=== PATIENT | female | born 1990 | race Caucasian/White ===

== ENCOUNTER → 2019-08-23 14:02 | Outpatient (BNVA) | payer BC, SELFPAY | PROVIDERS: Family Provider Family Medicine; PCP Family Medicine; Visit Provider Nurse Practitioner Women's Health | DX: N93.9 Abnormal uterine and vaginal bleeding, unspecified (principal) | CPT/HCPCS: 84702; 85025 ==

== ENCOUNTER → 2019-09-03 13:58 | Outpatient (BNVA) | payer BC, SELFPAY | PROVIDERS: Family Provider Family Medicine; PCP Family Medicine; Visit Provider Nurse Practitioner Women's Health | DX: N93.9 Abnormal uterine and vaginal bleeding, unspecified (principal) | CPT/HCPCS: 76830 ==

== ENCOUNTER 2020-09-15 00:58 | Emergency (ER) | payer MEDICAID, SELFPAY ==
[2020-09-15 01:12] VITALS: BP 139/80; PULSE 123; RESP 22; TEMP 38.8; O2SAT 97; BMI 41.3
--- NOTE | 2020-09-15 01:19 | XRR_ITS ---
PROCEDURE INFORMATION: Exam: XR Chest Exam date and time: 09/15/2020 1:19 AM Age: 30 years old Clinical indication: Cough and fever; Additional info: Cough fever TECHNIQUE: Imaging protocol: XR of the chest. Views: 1 view. COMPARISON: CT abdomen pelvis w con* [id number] 09/12/2014 1:26 AM FINDINGS: Lungs: Unremarkable. No consolidation. Pleural spaces: Unremarkable. No pleural effusion. No pneumothorax. Heart/Mediastinum: Unremarkable. No cardiomegaly. Bones/joints: Unremarkable. XR/XR chest 1V portable [id number] IMPRESSION: No acute disease.
--- NOTE | 2020-09-15 01:24 | ED_ITS ---
HPI - Seizure General: Chief Complaint: Seizure Stated Complaint: fever, cough Time Seen by Provider: 09/15/20 01:18 History of Present Illness: HPI Narrative: Patient comes in for concerns of seizure and high fever this evening. Patient started on the fever this afternoon. Household has been full of people sick with upper respiratory infection. 2 people had been tested and tested negative for COVID-19. Patient appears unwell. Patient appears no acute distress. Patient is alert. Respirations are even lungs are clear. Vital signs noted an elevated temperature of 102 with a pulse rate of 123. Patient has a history of depression. Associated symptoms: Reports fever(s) Review of Systems General: Reports: 10 or more systems reviewed and unremarkable except in HPI and below Const: Reports: fever(s) Neuro: Reports: seizure-like activity PFS ED PFSH: Medical History (Updated 09/15/20 @ 03:14 by CHITO Mccormick) Abnormal uterine bleeding (AUB) Asthma Depression Surgical History No pertinent past surgical history Family History Father Hypertension Stroke Denies family history of Colon cancer Ovarian cancer Diabetes Heart disease Hyperlipidemia Breast cancer Family history of thyroid problem Uterine cancer Social History Additional social history: - Tobacco use: Denies Alcohol use: Denies Drug use: Denies Physical Exam Const: COMMON NORMALS: no acute distress and patient oriented x3 GENERAL APPEARANCE: cooperative HENMT: COMMON NORMALS: normocephalic, TM's normal bilaterally and Normal external nose present HEAD & SCALP: normal to inspection and normocephalic NOSE: Normal external nose present TYMPANIC MEMBRANE: TM's normal bilaterally MOUTH: Normal oral and palatal mucosa present THROAT: posterior oropharynx normal Eye: GENERAL EYE: appearance normal, both eyes and all related structures Neck/C-Spine: COMMON NORMALS: full ROM Lymph: LYMPHATIC: no lymphadenopathy noted Chest: COMMONS NORMALS: normal inspection of the chest Resp: COMMON NORMALS: normal respiratory effort EFFORT & INSPECTION: Yes able to speak in complete sentences Cardio: COMMON NORMALS: regular rate and regular rhythm RATE: regular rate RHYTHM: regular rhythm GI: COMMON NORMALS: non-tender Back/Pelvis: COMMON NORMALS: thoracic and lumbar spine normal to inspection Extremity: COMMON NORMALS: normal to inspection Neuro: COMMON NORMALS: patient oriented x3 and moves all extremities Psych: COMMON NORMALS: mental status grossly normal and cooperative Skin: COMMON NORMALS: no rashes or lesions noted GENERAL SKIN EXAM: no rashes or lesions noted Course Vital Signs: Vital signs: Vital Signs Temperature 102 F H 09/15/20 01:12 Pulse Rate 123 H 09/15/20 01:12 Respiratory Rate 22 H 09/15/20 01:12 Blood Pressure 139/80 09/15/20 01:12 Pulse Oximetry 97 09/15/20 01:12 MDM - Seizure MDM Narrative: Medical decision making narrative: Patient comes in today with concerns of high fever and upper respiratory symptoms. Other members in the household are also ill with similar symptoms. Patient appears unwell, but not toxic. Mother reports that patient had a temperature of 105 and patient was shivering thinking that it looked like a seizure. Patient did not have any loss of bowel or bladder control. Patient is alert and has frequent coughing and nasal drainage. Lungs are clear to auscultation. Abdomen soft nontender. Pulses are intact. Differential diagnosis includes but not limited to pneumonia, upper respiratory infection, UTI, viral syndrome. Covid antigen test was negative, influenza was negative and strep test were negative. CBC and CMP were unremarkable. Urinalysis was contaminated and unremarkable. Patient was given 1 L of IV fluid with 600 mg of ibuprofen. Patient was able to tolerate medication and oral intake. I suspect patient probably has COVID-19 and antigen test is not reading a positive result due to onset of symptoms today. I have collected and sent a PCR test to [facility]. Patient will continue with ibuprofen and acetaminophen for pain and fever. She can also use some [id number] cough and cold medicine. Patient should follow-up with primary care for other recommendations. Patient to return to the ER for worsening symptoms such as chest pain and shortness of breath. Lab Data: Labs: Lab Results 09/15/20 09/15/20 09/15/20 Range/Units 01:43 01:43 02:02 WBC 8.9 (4.0-10.0) 10^3/ uL RBC 4.34 (4.1-5.3) 10^6/u L Hgb 13.0 (11.5-15.3) g/dL Hct 40.0 (37.0-47.0) % MCV 92.2 (81-99) fL MCH 30.0 (28.0-34.0) pg MCHC 32.5 (30.0-36.0) g/dL RDW 12.6 (12.1-15.1) % Plt Count 302 (130-400) 10^3/c mm MPV 9.8 (7.4-10.4) fL Neut % (Auto) 76.6 % Lymph % (Auto) 15.9 % [place] % (Auto) 5.8 % Eos % (Auto) 1.1 % Baso % (Auto) 0.4 % Neut # (Auto) 6.83 (1.8-7.7) 10^3/u L Lymph # (Auto) 1.4 (0.8-4.8) 10^3/u L [place] # (Auto) 0.5 (0.2-0.9) 10^3/u L Eos # (Auto) 0.1 (0.0-0.8) 10^3/u L Baso # (Auto) 0.0 (0.0-0.1) 10^3/u L Nucleated RBC % (a uto) 0 % Nucleated RBCs # 0.0 /100WBC Sodium 137 (136-145) mmol/L Potassium 3.8 (3.5-5.1) mmol/L Chloride 100 (98-107) mmol/L Carbon Dioxide 24 (22-29) mmol/L Anion Gap 16.8 (5-19) BUN 11 (6-20) mg/dL Creatinine 0.6 (0.5-0.9) mg/dL GFR Calculation 119.0 (90-130) mL/min Glucose 98 (65-115) mg/dL Calculated Osmolal ity 283 L (285-295) mOsm/k g Calcium 9.2 (8.5-10.5) mg/dL Total Bilirubin 0.3 (0.15-1.2) mg/dL AST 32 (0-32) U/L ALT 36 H (0-33) U/L Alkaline Phosphata se 108 H (35-105) IU/L Total Protein 7.7 (6.6-8.7) g/dL Albumin 4.1 (3.5-5.2) g/dL Globulin 3.6 (1.3-4.6) g/dL Urine Color (Yellow) Urine Appearance (CLEAR) Urine pH (5-7) Ur Specific Gravit y (1.005-1.030) Urine Protein (Negative) Urine Glucose (UA) (Normal) Urine Ketones (Negative) Urine Blood (Negative) Urine Nitrate (Negative) Urine Bilirubin (Negative) Urine Urobilinogen (Negative) mg/dL Ur Leukocyte Lashay ase (Negative) Urine RBC (0-2) /hpf Urine WBC (0-5) /hpf Ur Squamous Epith Cells (0-5) /hpf Amorphous Sediment Urine Bacteria (NONE) /hpf Urine Mucus /hpf Influenza Type A A g Negative (Negative) Influenza Type B A g Negative (Negative) SARS-CoV-2 Ag (Rap id) (Negative) Group A Strep Rapi d (Negative) 09/15/20 09/15/20 09/15/20 Range/Units 02:02 02:16 02:53 WBC (4.0-10.0) 10^3/ uL RBC (4.1-5.3) 10^6/u L Hgb (11.5-15.3) g/dL Hct (37.0-47.0) % MCV (81-99) fL MCH (28.0-34.0) pg MCHC (30.0-36.0) g/dL RDW (12.1-15.1) % Plt Count (130-400) 10^3/c mm MPV (7.4-10.4) fL Neut % (Auto) % Lymph % (Auto) % [place] % (Auto) % Eos % (Auto) % Baso % (Auto) % Neut # (Auto) (1.8-7.7) 10^3/u L Lymph # (Auto) (0.8-4.8) 10^3/u L [place] # (Auto) (0.2-0.9) 10^3/u L Eos # (Auto) (0.0-0.8) 10^3/u L Baso # (Auto) (0.0-0.1) 10^3/u L Nucleated RBC % (a uto) % Nucleated RBCs # /100WBC Sodium (136-145) mmol/L Potassium (3.5-5.1) mmol/L Chloride (98-107) mmol/L Carbon Dioxide (22-29) mmol/L Anion Gap (5-19) BUN (6-20) mg/dL Creatinine (0.5-0.9) mg/dL GFR Calculation (90-130) mL/min Glucose (65-115) mg/dL Calculated Osmolal ity (285-295) mOsm/k g Calcium (8.5-10.5) mg/dL Total Bilirubin (0.15-1.2) mg/dL AST (0-32) U/L ALT (0-33) U/L Alkaline Phosphata se (35-105) IU/L Total Protein (6.6-8.7) g/dL Albumin (3.5-5.2) g/dL Globulin (1.3-4.6) g/dL Urine Color Yellow (Yellow) Urine Appearance Clear (CLEAR) Urine pH 5 (5-7) Ur Specific Gravit y 1.010 (1.005-1.030) Urine Protein Neg (Negative) Urine Glucose (UA) Norm (Normal) Urine Ketones Negative (Negative) Urine Blood Neg (Negative) Urine Nitrate Negative (Negative) Urine Bilirubin Neg (Negative) Urine Urobilinogen Norm (Negative) mg/dL Ur Leukocyte Lashay ase 1+ H (Negative) Urine RBC 0-4 H (0-2) /hpf Urine WBC 5-10 H (0-5) /hpf Ur Squamous Epith Cells 10-15 H (0-5) /hpf Amorphous Sediment Not Reportable Urine Bacteria 3+ H (NONE) /hpf Urine Mucus Trace /hpf Influenza Type A A g (Negative) Influenza Type B A g (Negative) SARS-CoV-2 Ag (Rap id) Negative (Negative) Group A Strep Rapi d Negative (Negative) Discharge Plan Discharge Patient Disposition: Home Clinical Impression: Viral syndrome, Febrile convulsion Condition: Stable Prescriptions: No Action multivitamin Tablet 1 tab PO DAILY RF: 0 escitalopram oxalate 10 mg tablet 10 mg PO DAILY RF: 0 ibuprofen 800 mg tablet 800 mg PO TID Qty: 30 RF: 1 lidocaine-epinephrine (PF) 2 %-1:200,000 solution 1 ml Infiltration ONCE Qty: 20 RF: 0 povidone-iodine [Betadine Swabsticks] 10 % swab 1 applic topical ONCE Qty: 150 RF: 0 norethindrone acetate 5 mg tablet 5 mg PO DAILY Qty: 30 RF: 5 Discharge Orders: Discharge ED (Routine); Ordered 09/15/20 Ordered By: Jose L Glez Referrals: Mirian Wilson DO [Primary Care Provider] - Discharge Diet: Usual diet Discharge Activity: Increase activity as tolerated Patient Instructions: Viral Syndrome (ED), Opioid Safety Activity Restrictions/Additional Instructions: Drink plenty of water and fluids. Is important to stay well-hydrated. Drink at least 1-1/2 to 2 L of fluid a day. Use acetaminophen and ibuprofen to control your fever. Avoid contact with other individuals as this may be COVID-19. A PCR test which is a more accurate test has been sent to [facility]. Follow-up with primary care for further instructions. Return to the ER for worsening symptoms such as shortness of breath or chest pain. Controlling your fever will help with your seizure-like episodes. Staying well-hydrated will help control your fever. Coding Level of Care Code ED Bridge Crane Operator for [place] Fwd Exam Comprehensive
[2020-09-15 01:52] LABS: Basophils % 0.4 %; Eosinophils # 0.1 10^3/uL (0.0-0.8); Eosinophils % 1.1 %; Lymphocytes # 1.4 10^3/uL (0.8-4.8); Lymphocytes % 15.9 %; Mean Corpuscular HGB Conc 32.5 g/dL (30.0-36.0); Mean Corpuscular Volume 92.2 fL (81-99); Mean Platelet Volume 9.8 fL (7.4-10.4); Monocytes # 0.5 10^3/uL (0.2-0.9); Monocytes % 5.8 %; Neutrophils # 6.83 10^3/uL (1.8-7.7); Neutrophils % 76.6 %; Nucleated Red Blood Cells % 0 %; Platelet Count 302 10^3/cmm (130-400); Red Blood Count 4.34 10^6/uL (4.1-5.3); Red Cell Distribution Width 12.6 % (12.1-15.1); White Blood Count 8.9 10^3/uL (4.0-10.0)
[2020-09-15 02:08] LABS: Alanine Aminotransferase 36 U/L (0-33); Albumin Level 4.1 g/dL (3.5-5.2); Alkaline Phosphatase 108 IU/L (35-105); Aspartate Amino Transferase 32 U/L (0-32); Blood Urea Nitrogen 11 mg/dL (6-20); Calcium 9.2 mg/dL (8.5-10.5); Carbon Dioxide 24 mmol/L (22-29); Chloride 100 mmol/L (98-107); Globulin 3.6 g/dL (1.3-4.6); Glucose 98 mg/dL (65-115); Potassium 3.8 mmol/L (3.5-5.1); Total Bilirubin 0.3 mg/dL (0.15-1.2); Total Protein 7.7 g/dL (6.6-8.7)
[2020-09-15] MEDS: ibuprofen 600 mg Tablet PO (02:13)
[2020-09-15] MEDS: sodium chloride 0.9% 1,000 ML 999 ML IV (02:13)
[2020-09-15 02:15] LABS: Anion Gap 16.8 (5-19); Osmolality Calculated 283 mOsm/kg (285-295); Sodium 137 mmol/L (136-145)
[2020-09-15 02:30] LABS: Rapid Strep A Test Negative (Negative)
[2020-09-15 02:35] LABS: Influenza A by IFA Negative (Negative); Influenza B by IFA Negative (Negative); SARS Covid-2 Antigen Negative (Negative)
[2020-09-15 03:12] LABS: Add Urine Culture? No; Add Urine Microscopic? YES; Bacteria Urine 3+ /hpf; Bilirubin Urine Neg (Negative); Blood Urine Neg (Negative); Glucose Urine UA Norm (Normal); Ketones Urine Negative (Negative); Leukocyte Esterase Urine 1+ (Negative); Mucus Urine TRACE /hpf; Nitrate Urine Negative (Negative); Protein Urine Neg (Negative); RBC Urine 0-4 /hpf (0-2); Urine Appearance Clear (CLEAR); Urine Color Yellow (Yellow); Urobilinogen Urine Norm (Negative); pH Urine 5 (5-7)
[2020-09-15 03:21] VITALS: BP 124/69; PULSE 105; RESP 22; O2SAT 94
[2020-09-15 03:43] VITALS: BP 120/76; PULSE 103; RESP 22; TEMP 36.7; O2SAT 95
[2020-09-15 03:59] VITALS: BP 120/76; PULSE 103; RESP 22; TEMP 36.6; O2SAT 95
[2020-09-18 09:22] LABS: Quest SARS-CoV-2 RNA NOT DETECTED (NOT DETECTED)
== END 2020-09-15 04:03 | disposition home or self-care (01) ==
PROVIDERS: Emergency Provider Nurse Practitioner Family; PCP Family Medicine
DX: B34.9 Viral infection, unspecified (principal); R56.00 Simple febrile convulsions; Z20.822 Contact with and (suspected) exposure to COVID-19
CPT/HCPCS: 71045; 80053; 81001; 85025; 87081; 87426; 87635; 87804; 87880; 96360; 99284; J7030

== ENCOUNTER 2021-02-13 17:16 | Emergency (ER) | payer MEDICAID, SELFPAY ==
[2021-02-13 17:24] VITALS: BP 145/84; PULSE 107; RESP 16; TEMP 36.8; O2SAT 98
--- NOTE | 2021-02-13 17:37 | W.ED.NEUROSD ---
HPI - Neuro Symptoms/Deficit General: Chief Complaint: Neuro Symptoms/Deficit Stated Complaint: STROKE 02.11.21 ANOTHER EPISODE TODAY Time Seen by Provider: 02/13/21 17:37 Limitations: altered mental status History of Present Illness: HPI Narrative: Ms. Grant is a 30-year-old lady with no significant past medical history presents to the emergency department due to abnormal neurologic symptoms. She was at her baseline health until 2 days ago. She describes getting off work and having a period of time where she was apparently acting normally but more or less does not remember. She went to shower after this (approximately 2-hour long missing time) and syncopized under unclear circumstances. She was evaluated at [facility] and sent home with somewhat unclear diagnosis though the patient does say that she was diagnosed with a stroke. Yesterday she had felt okay without recurrence of symptoms however later today sometime after work she began having symptoms again. The exact time of onset is unclear as she was at work and perhaps endorses symptoms during that time however definitively the patient has symptoms for greater than 3 hours. Symptoms include confusion, word finding difficulty, repeated questioning and some observable facial droop. Upon initial arrival to the emergency department she was triaged as having NIHSS of 7 with left-sided weakness and numbness, confusion, and difficulty answering questions. Upon my initial evaluation weakness has improved however subjective sensory changes and mental status changes are observable. History was largely obtained by the patient's significant other as the patient has difficulty answering questions. Speech is clear with out obvious dysarthria, she repeats some answers. She does have a history of occasional headaches but no diagnosed history of migraines. Additionally she had febrile seizures as a child however no seizures since resolved. Also, per chart review, there was a previous encounter for abnormal shaking associated with fever however note is somewhat unconvincing of seizure episode compared to just rigors associated with fever. Review of Systems General: Reports: ROS unobtainable due to mental status PFS ED PFSH: Medical History Abnormal uterine bleeding (AUB) Asthma Depression Surgical History No pertinent past surgical history Family History Father Hypertension Stroke Denies family history of Colon cancer Ovarian cancer Diabetes Heart disease Hyperlipidemia Breast cancer Family history of thyroid problem Uterine cancer Social History Additional social history: - Tobacco use: Denies Alcohol use: Denies Drug use: Denies Physical Exam Narrative: EXAM NARRATIVE: GENERAL/CONSTITUTIONAL - mildly ill-appearing. No acute distress. Obese Eyes - PERRL, no conjunctival injection ENMT - Atraumatic external nose and ears. Moist mucous membranes NECK - supple. trachea midline CARDIOVASCULAR -tachycardic rate and regular rhythm RESPIRATORY - clear to auscultation bilaterally. No retractions or accessory muscle use. ABDOMEN/GI - Nontender/Nondistended. No tenderness to percussion or evidence of peritonitis MSK - Extremities without obvious deformity or tenderness to palpation SKIN - Warm, Dry NEURO - alert but difficult to assess orientation. Cranial nerves II through XII intact. Subjective sensory changes in the left upper and left lower extremity. Impaired cognition and memory. Course ED course: - Patient was seen and evaluated by me at bedside - Patient placed on cardiac monitors, IV access obtained - Initial evaluation notable for as noted above. Mild improvement with from initial triage assessment though still clearly abnormal exam. Unfortunately, patient is not a candidate for thrombolysis given that time of onset is not definitively identified and therefore may be greater than 5 hours. - Labs notable for no acute hematologic, metabolic, or intoxicant to explain patient's symptoms. Urinalysis with 3+ bacteria however is nitrate negative and leuk esterase negative with 10-15 squamous epithelial contamination, therefore unlikely to be urinary tract infection. - Imaging notable for no acute finding on head CT. CTA also negative for acute finding to explain patient's symptoms. - Upon reexamination the patient was spontaneously improved with return to baseline neurologic status and only neurologic symptoms patient reports his left hand and left foot tingling. She had reported a small amount of IV fluids and magnesium however likely not significantly enough to meaningfully change symptoms if a complex migraine was occurring. Additionally this would be atypical as patient does not currently have headache. Valproic acid as an additional headache treatment was considered however canceled after discussion with neurology service as - Based on patient history, evaluation, labs, and imaging as interpreted the most likely cause of the patient's condition is unclear. Differentials include TIA, seizure, complex headache, or other unspecified neurologic process. - I contacted on-call neurology service at [facility] in [place] and requested general neurology consult however was told I need to talk to the acute stroke service. I discussed the case with Dr. Ruggiero. She was agreeable that given unclear time of onset and current time patient not a candidate for thrombolysis. She recommended EEG and MRI. Given that we do not have on-call neurology and therefore are unable to get EEG the patient was accepted as a transfer to the general neurology service. - I discussed this with the patient who was initially agreeable for transfer for further neurologic evaluation. During the process of waiting for bed assignment for transfer the patient reported that she no longer wanted to be transferred and wishes to drive by private vehicle to the hospital in [place]. I explained that this was not advisable and the cause of the patients symptoms is unclear and given that it is unclear being outside in healthcare setting puts her at risk for further neurologic events leading to possibility of seizure, coma, . -The patient is oriented to person, place, and time, has the capacity to make decisions regarding the medical care offered. The patient speaks coherently and exhibits no evidence of having an altered level of consciousness or intoxication to a point that would impair judgment. The patient can express risks as explained. Therefore, while I expressed to the patient that I believe she is making a dangerous and poor decision, I believe the patient can make the decision to leave AGAINST MEDICAL ADVICE. - The patient left AGAINST MEDICAL ADVICE in satisfactory condition with near complete resolution of neurologic symptoms. Vital Signs: Vital signs: Vital Signs Temperature 98.2 F 02/13/21 17:24 Pulse Rate 78 02/14/21 00:52 Respiratory Rate 18 02/14/21 00:52 Blood Pressure 116/78 02/14/21 00:52 Pulse Oximetry 100 02/14/21 00:52 MDM - Neuro Symptoms/Deficit Medical Records: Attestation: I reviewed the patient's medical records. Lab Data: Attestation: I reviewed the patient's lab results. Labs: Lab Results 02/13/21 02/13/21 02/13/21 18:05 18:05 18:05 WBC 8.9 10^3/uL 10^3/ uL (4.0-10.0) RBC 4.48 10^6/uL 10^6 /uL (4.1-5.3) Hgb 13.1 g/dL g/dL (11.5-15.3) Hct 41.0 % % (37.0-47.0) MCV 91.5 fl fl (81-99) MCH 29.2 pg pg (28.0-34.0) MCHC 32.0 g/dL g/dL (30.0-36.0) RDW 13.0 % % (12.1-15.1) Plt Count 335 10^3/cmm 10^3 /cmm (130-400) MPV 9.8 fL fL (7.4-10.4) Neut % (Auto) 66.0 % % Lymph % (Auto) 27.3 % % [place] % (Auto) 5.6 % % Eos % (Auto) 0.8 % % Baso % (Auto) 0.2 % % Neut # (Auto) 5.87 10^3/uL 10^3 /uL (1.8-7.7) Lymph # (Auto) 2.4 10^3/uL 10^3/ uL (0.8-4.8) [place] # (Auto) 0.5 10^3/uL 10^3/ uL (0.2-0.9) Eos # (Auto) 0.1 10^3/uL 10^3/ uL (0.0-0.8) Baso # (Auto) 0.0 10^3/uL 10^3/ uL (0.0-0.1) Nucleated RBC % (a uto) 0 % % Nucleated RBCs # 0.0 /100WBC /100W BC PT 13.40 SECONDS SEC ONDS (12.1-14.9) INR 0.99 (0.8-1.2) APTT 28.1 SECONDS SECO NDS (23.9-36.7) Sodium 139 mmol/L mmol/L (136-145) Potassium 4.1 mmol/L mmol/L (3.5-5.1) Chloride 104 mmol/L mmol/L (98-107) Carbon Dioxide 22 mmol/L mmol/L (22-29) Anion Gap 17.1 (5-19) BUN 11 mg/dL mg/dL (6-20) Creatinine 0.6 mg/dL mg/dL (0.5-0.9) GFR Calculation 119.0 mL/min mL/m in (90-130) Glucose 95 mg/dL mg/dL (65-115) Calculated Osmolal ity 287 mOsm/kg mOsm/ kg (285-295) Calcium 9.0 mg/dL mg/dL (8.5-10.5) Total Bilirubin 0.2 mg/dL mg/dL (0.15-1.2) AST 28 U/L U/L (0-32) ALT 31 U/L U/L (0-33) Alkaline Phosphata se 87 IU/L IU/L (35-105) Total Protein 7.1 g/dL g/dL (6.6-8.7) Albumin 4.3 g/dL g/dL (3.5-5.2) Globulin 2.8 g/dL g/dL (1.3-4.6) Ser , Afia i-Qnt Urine Color Urine Appearance Urine pH Ur Specific Gravit y Urine Protein Urine Glucose (UA) Urine Ketones Urine Blood Urine Nitrate Urine Bilirubin Urine Urobilinogen Ur Leukocyte Lashay ase Urine Opiates Scre en Ur Barbiturates Sc reen Ur Phencyclidine S crn Ur Amphetamines Sc reen U Benzodiazepines Scrn Urine Cocaine Scre en U Marijuana (THC) Screen SARS-CoV-2 Ag (Rap id) 02/13/21 02/13/21 02/13/21 18:05 21:00 21:00 WBC RBC Hgb Hct MCV MCH MCHC RDW Plt Count MPV Neut % (Auto) Lymph % (Auto) [place] % (Auto) Eos % (Auto) Baso % (Auto) Neut # (Auto) Lymph # (Auto) [place] # (Auto) Eos # (Auto) Baso # (Auto) Nucleated RBC % (a uto) Nucleated RBCs # PT INR APTT Sodium Potassium Chloride Carbon Dioxide Anion Gap BUN Creatinine GFR Calculation Glucose Calculated Osmolal ity Calcium Total Bilirubin AST ALT Alkaline Phosphata se Total Protein Albumin Globulin Ser , Afia i-Qnt 0.50 mIU/mL mIU/m L Urine Color Yellow (Yellow) Urine Appearance Clear (CLEAR) Urine pH 7 (5-7) Ur Specific Gravit y 1.005 (1.005-1.030) Urine Protein Neg (Negative) Urine Glucose (UA) Norm (Normal) Urine Ketones Negative (Negative) Urine Blood Neg (Negative) Urine Nitrate Negative (Negative) Urine Bilirubin Neg (Negative) Urine Urobilinogen Norm mg/dL mg/dL (Negative) Ur Leukocyte Lashay ase Negative (Negative) Urine Opiates Scre en Negative ng/mL ng /mL (Negative) Ur Barbiturates Sc reen Negative ng/mL ng /mL (Negative) Ur Phencyclidine S crn Negative ng/mL ng /mL (Negative) Ur Amphetamines Sc reen Negative ng/mL ng /mL (Negative) U Benzodiazepines Scrn Negative ng/mL ng /mL (Negative) Urine Cocaine Scre en Negative ng/mL ng /mL (Negative) U Marijuana (THC) Screen Negative ng/mL ng /mL (Negative) SARS-CoV-2 Ag (Rap id) 02/13/21 22:02 WBC RBC Hgb Hct MCV MCH MCHC RDW Plt Count MPV Neut % (Auto) Lymph % (Auto) [place] % (Auto) Eos % (Auto) Baso % (Auto) Neut # (Auto) Lymph # (Auto) [place] # (Auto) Eos # (Auto) Baso # (Auto) Nucleated RBC % (a uto) Nucleated RBCs # PT INR APTT Sodium Potassium Chloride Carbon Dioxide Anion Gap BUN Creatinine GFR Calculation Glucose Calculated Osmolal ity Calcium Total Bilirubin AST ALT Alkaline Phosphata se Total Protein Albumin Globulin Ser , Afia i-Qnt Urine Color Urine Appearance Urine pH Ur Specific Gravit y Urine Protein Urine Glucose (UA) Urine Ketones Urine Blood Urine Nitrate Urine Bilirubin Urine Urobilinogen Ur Leukocyte Lashay ase Urine Opiates Scre en Ur Barbiturates Sc reen Ur Phencyclidine S crn Ur Amphetamines Sc reen U Benzodiazepines Scrn Urine Cocaine Scre en U Marijuana (THC) Screen SARS-CoV-2 Ag (Rap id) Negative (Negative) EKG Data^: EKG 1: Attestation: I personally reviewed and interpreted this EKG as follows: EKG interpretation date: 02/13/21 EKG interpretation time: 18:18 Interpretation: Twelve-lead EKG shows a regular rhythm at a rate of 84. [place] interval 151, QRS duration 88, QTc 424. Normal axis. Interpretation: Sinus rhythm. Critical Care Time Critical Care Time: Critical Care Time: Yes Total Critical Care Time: 35 Attestation: This case had a high probability of a clinically significant, sudden, or life threatening deterioration of this patient's condition which required my full and direct attention, intervention and personal management. Discharge Plan Discharge Patient Disposition: Left Against Medical Advice Condition: Fair Prescriptions: No Action multivitamin Tablet 1 tab PO DAILY RF: 0 escitalopram oxalate 10 mg tablet 10 mg PO DAILY RF: 0 ibuprofen 800 mg tablet 800 mg PO TID Qty: 30 RF: 1 lidocaine-epinephrine (PF) 2 %-1:200,000 solution 1 ml Infiltration ONCE Qty: 20 RF: 0 povidone-iodine [Betadine Swabsticks] 10 % swab 1 applic topical ONCE Qty: 150 RF: 0 norethindrone acetate 5 mg tablet 5 mg PO DAILY Qty: 30 RF: 5 Referrals: Mirian Wilson DO [Primary Care Provider] - Coding Level of Care Code ED Manager Of Tax for Shonda Robertson
--- NOTE | 2021-02-13 17:38 | XRR_ITS ---
PROCEDURE INFORMATION: Exam: XR Chest Exam date and time: 02/13/2021 5:38 PM Age: 30 years old Clinical indication: Other: Stroke like symptoms; Additional info: Stroke symptoms TECHNIQUE: Imaging protocol: XR of the chest. Views: 1 view. COMPARISON: CR XR chest 1V portable [id number] 09/15/2020 1:20 AM FINDINGS: Lungs: Cardiomegaly, lungs are clear. Pleural spaces: Unremarkable. No pleural effusion. No pneumothorax. Heart/Mediastinum: See Lungs finding. Bones/joints: Unremarkable. XR/XR chest 1V portable [id number] IMPRESSION: Cardiomegaly, lungs are clear. Radiation Dose CTDIVOL = (mGy): DLP = (mGy-cm)
--- NOTE | 2021-02-13 17:38 | ECG_ITS ---
[facility] Test Date: 2021-02-13 Pat Name: Mery Grant Department: Room: Gender: Female Finishing Room Operator: : 1990 Requested By: Stephan Perez Order Number: [id number] Payal MD: Kyle Keen M.D. Measurements Intervals [place] Rate: 84 P: 61 [place]: 151 QRS: 15 QRSD: 88 T: 51 QT: 359 QTc: 424 Interpretive Statements SINUS RHYTHM POSSIBLE LEFT ATRIAL ENLARGEMENT [-0.1mV P-WAVE IN V1/V2] NONSPECIFIC T-WAVE ABNORMALITY No previous ECG available for comparison Electronically Signed On 02-15-2021 13:20:02 TREATMENT COUNSELOR by Kyle Keen M.D. [id number]
--- NOTE | 2021-02-13 17:38 | CTR_ITS ---
PROCEDURE INFORMATION: Exam: CT Head Without Contrast Exam date and time: 02/13/2021 5:38 PM Age: 30 years old Clinical indication: Weakness, extremity; Left; Patient HX: C/O L sided weakness and confusion; Additional info: Symptoms of stroke TECHNIQUE: Imaging protocol: Computed tomography of the head without contrast. Radiation optimization: All CT scans at this facility use at least one of these dose optimization techniques: automated exposure control; mA and/or kV adjustment per patient size (includes targeted exams where dose is matched to clinical indication); or iterative reconstruction. COMPARISON: No relevant prior studies available. RADIATION DOSE METRICS: Total DLP (mGy-cm): 952.66 FINDINGS: Brain: Normal. No hemorrhage. Unremarkable white matter. No mass effect. Cerebral ventricles: No ventriculomegaly. Paranasal sinuses: Visualized sinuses are unremarkable. No fluid levels. Mastoid air cells: Visualized mastoid air cells are well aerated. Bones/joints: Unremarkable. No acute fracture. Soft tissues: Unremarkable. CT/CT head wo con* [id number] IMPRESSION: No acute intracranial abnormality. Radiation Dose CTDIVOL = (mGy): DLP = 952.66 (mGy-cm)
--- NOTE | 2021-02-13 17:38 | CTR_ITS ---
PROCEDURE INFORMATION: Exam: CT Angiography Head With Contrast, Arteriography Exam date and time: 02/13/2021 5:38 PM Age: 30 years old Clinical indication: Patient HX: Left side weakness; Dx w/ CVA 2 days ago at another facility; Additional info: Stroke symptoms TECHNIQUE: Imaging protocol: Computed tomography angiography of the head with contrast. Exam focused on the arteries. 3D rendering (Not supervised by radiologist): MIP and/or 3D reconstructed images were created by the technologist. Radiation optimization: All CT scans at this facility use at least one of these dose optimization techniques: automated exposure control; mA and/or kV adjustment per patient size (includes targeted exams where dose is matched to clinical indication); or iterative reconstruction. Contrast material: OMNI 350; Contrast volume: 95 ml; Contrast route: INTRAVENOUS (IV); COMPARISON: CT head wo con* [id number] 02/13/2021 6:19 PM RADIATION DOSE METRICS: Total DLP (mGy-cm): 2255.61 FINDINGS: ANTERIOR CIRCULATION: Right internal carotid artery: Unremarkable. Intracranial segment is patent with no significant stenosis. No aneurysm. Right middle cerebral artery: Unremarkable. No occlusion or significant stenosis. No aneurysm. Right anterior cerebral artery: Unremarkable. No occlusion or significant stenosis. No aneurysm. Left internal carotid artery: Unremarkable. Intracranial segment is patent with no significant stenosis. No aneurysm. Left middle cerebral artery: Unremarkable. No occlusion or significant stenosis. No aneurysm. Left anterior cerebral artery: Unremarkable. No occlusion or significant stenosis. No aneurysm. POSTERIOR CIRCULATION: Right vertebral artery: Unremarkable. No occlusion or significant stenosis. No aneurysm. Left vertebral artery: Unremarkable. No occlusion or significant stenosis. No aneurysm. Basilar artery: Unremarkable. No occlusion or significant stenosis. No aneurysm. Right posterior cerebral artery: Unremarkable. No occlusion or significant stenosis. No aneurysm. Left posterior cerebral artery: Unremarkable. No occlusion or significant stenosis. No aneurysm. Veins: Dural venous sinuses are patent. Brain: The brain is unremarkable. Cerebral ventricles: No ventriculomegaly. Bones/joints: The calvarium is intact. Mastoid air cells: The mastoid air cells are clear. Soft tissues: Unremarkable. Paranasal sinuses: The paranasal sinuses are clear. PROCEDURE INFORMATION: Exam: CT Angiography Neck With Contrast Exam date and time: 02/13/2021 5:38 PM Age: 30 years old Clinical indication: Patient HX: Left side weakness; Dx w/ CVA 2 days ago at another facility; Additional info: Stroke symptoms TECHNIQUE: Imaging protocol: Computed tomography angiography of the neck with contrast. 3D rendering (Not supervised by radiologist): MIP and/or 3D reconstructed images were created by the technologist. Radiation optimization: All CT scans at this facility use at least one of these dose optimization techniques: automated exposure control; mA and/or kV adjustment per patient size (includes targeted exams where dose is matched to clinical indication); or iterative reconstruction. Contrast material: OMNI 350; Contrast volume: 95 ml; Contrast route: INTRAVENOUS (IV); COMPARISON: CT head wo con* [id number] 02/13/2021 6:19 PM RADIATION DOSE METRICS: Total DLP (mGy-cm): 2255.61 FINDINGS: Right common carotid artery: No stenosis. No dissection or occlusion. Right internal carotid artery: No stenosis of the extracranial segment. No dissection or occlusion. Right external carotid artery: No occlusion or stenosis of the origin. Left common carotid artery: No stenosis. No dissection or occlusion. Left internal carotid artery: No stenosis of the extracranial segment. No dissection or occlusion. Left external carotid artery: No occlusion or stenosis of the origin. Right vertebral artery: No stenosis. No dissection or occlusion. Left vertebral artery: No stenosis. No dissection or occlusion. Soft tissues: Soft tissues in the neck and thoracic inlet are unremarkable. Bones/joints: Bones are unremarkable. Lungs: Lung apices are clear. CT/CT angio headneck* [id number] IMPRESSION: No arterial stenosis, occlusion or aneurysm. IMPRESSION: No arterial stenosis, occlusion or dissection. REFERENCES: NASCET CRITERIA. The degree of internal carotid artery stenosis is based on NASCET criteria. Normal is no stenosis. Mild is less than 50% stenosis. Moderate is 50-69% stenosis. Severe is 70% to 99% stenosis. Total occlusion is no detectable patent lumen. Radiation Dose CTDIVOL = (mGy): DLP = 2255.61~2255.61 (mGy-cm)
[2021-02-13 18:15] LABS: Basophils % 0.2 %; Eosinophils # 0.1 10^3/uL (0.0-0.8); Eosinophils % 0.8 %; Hemoglobin 13.1 g/dL (11.5-15.3); Lymphocytes # 2.4 10^3/uL (0.8-4.8); Lymphocytes % 27.3 %; Mean Corpuscular Hemoglobin 29.2 pg (28.0-34.0); Mean Corpuscular Volume 91.5 fl (81-99); Mean Platelet Volume 9.8 fL (7.4-10.4); Monocytes # 0.5 10^3/uL (0.2-0.9); Monocytes % 5.6 %; Neutrophils # 5.87 10^3/uL (1.8-7.7); Nucleated Red Blood Cells % 0 %; Platelet Count 335 10^3/cmm (130-400); Red Blood Count 4.48 10^6/uL (4.1-5.3); White Blood Count 8.9 10^3/uL (4.0-10.0)
[2021-02-13] MEDS: iohexol 350 mg/mL 100 mL Btl IV (18:21)
[2021-02-13 18:25] LABS: INR 0.99 (0.8-1.2)
[2021-02-13 18:26] LABS: Partial Thromboplastin Time 28.1 SECONDS (23.9-36.7)
[2021-02-13 18:32] LABS: Alanine Aminotransferase 31 U/L (0-33); Albumin Level 4.3 g/dL (3.5-5.2); Alkaline Phosphatase 87 IU/L (35-105); Anion Gap 17.1 (5-19); Aspartate Amino Transferase 28 U/L (0-32); Blood Urea Nitrogen 11 mg/dL (6-20); Carbon Dioxide 22 mmol/L (22-29); Chloride 104 mmol/L (98-107); Globulin 2.8 g/dL (1.3-4.6); Glucose 95 mg/dL (65-115); Osmolality Calculated 287 mOsm/kg (285-295); Potassium 4.1 mmol/L (3.5-5.1); Sodium 139 mmol/L (136-145); Total Bilirubin 0.2 mg/dL (0.15-1.2); Total Protein 7.1 g/dL (6.6-8.7)
[2021-02-13] MEDS: sodium chloride 0.9% 1,000 ML 999 ML IV (20:20)
[2021-02-13] MEDS: magnesium sulfate premix 2 GM/50 ML PIGGYBACK IV (20:20)
[2021-02-13 21:25] LABS: Add Urine Microscopic? NO; Charge for UA Resulting for Rev
[2021-02-13 21:27] LABS: Bilirubin Urine Neg (Negative); Blood Urine Neg (Negative); Glucose Urine UA Norm (Normal); Ketones Urine Negative (Negative); Leukocyte Esterase Urine Negative (Negative); Nitrate Urine Negative (Negative); Protein Urine Neg (Negative); Specific Gravity, Urine 1.005 (1.005-1.030); Urine Appearance Clear (CLEAR); Urine Color Yellow (Yellow); Urobilinogen Urine Norm (Negative); pH Urine 7 (5-7)
[2021-02-13 21:35] LABS: Amphetamines Screen Urine Negative (Negative); Barbiturates Screen Urine Negative (Negative); Benzodiazepines Screen Urine Negative (Negative); Cocaine Screen Urine Negative (Negative); Opiate Screen Urine Negative (Negative); PCP Screen Urine Negative (Negative); THC Screen Urine Negative (Negative)
[2021-02-13 22:33] LABS: SARS Covid-2 Antigen Negative (Negative)
--- NOTE | 2021-02-13 22:39 | PC.NURSE ---
Report received from Cristal CLIFTON. Care assumed.
[2021-02-13] MEDS: acetaminophen 500 mg Tablet 1000 MG PO (23:26)
[2021-02-14 00:29] VITALS: BP 120/77; PULSE 82; RESP 16; O2SAT 100
[2021-02-14 00:52] VITALS: BP 116/78; PULSE 78; RESP 18; O2SAT 100
== END 2021-02-14 00:40 | disposition left against medical advice (07) ==
PROVIDERS: Emergency Provider Emergency Medicine; PCP Family Medicine
DX: R55 Syncope and collapse (principal); R20.0 Anesthesia of skin; Z53.21 Procedure and treatment not carried out due to patient leaving prior to being seen by health care provider
CPT/HCPCS: 70450; 70496; 70498; 71045; 80053; 80306; 81003; 84702; 85025; 85610; 85730; 87426; 93005; 96365; 99284; J3475; J7030; Q9967

== ENCOUNTER 2021-04-02 19:02 | Emergency (ER) | payer MEDICAID, SELFPAY ==
[2021-04-02 19:13] VITALS: BP 162/82; PULSE 70; RESP 16; TEMP 36.6; O2SAT 99; BMI 41.3
--- NOTE | 2021-04-02 19:19 | XRR_ITS ---
PROCEDURE INFORMATION: Exam: XR Chest Exam date and time: 04/02/2021 7:19 PM Age: 31 years old Clinical indication: Other: CVA TECHNIQUE: Imaging protocol: XR of the chest. Views: 1 view. COMPARISON: CR (CHEST, ) 02/13/2021 5:50 PM FINDINGS: Lungs: Right hilar to lower lobe atelectasis versus minimal infiltrate. Pleural spaces: Unremarkable. No pleural effusion. No pneumothorax. Heart/Mediastinum: Unremarkable. No cardiomegaly. Bones/joints: Unremarkable. XR/XR chest 1V portable [id number] IMPRESSION: Right hilar to lower lobe atelectasis versus minimal infiltrate.
--- NOTE | 2021-04-02 19:19 | ECG_ITS ---
[facility] Test Date: 2021-04-02 Pat Name: Mery Grant Department: Room: Gender: Female [employer]: : 1990 Requested By: Jackson Daniel Order Number: [id number] Payal MD: Jaye Stewart M.D. Measurements Intervals [place] Rate: 81 P: 56 TX: 158 QRS: 23 QRSD: 100 T: 39 QT: 386 QTc: 450 Interpretive Statements SINUS RHYTHM NONSPECIFIC T-WAVE ABNORMALITY Compared to ECG 02/13/2021 18:16:00 No significant changes Electronically Signed On 04-03-2021 9:27:39 CLINICAL IMPLEMENTATION SPECIALIST by Jaye Stewart M.D. [id number]
--- NOTE | 2021-04-02 19:19 | CTR_ITS ---
PROCEDURE INFORMATION: Exam: CT Head Without Contrast Exam date and time: 04/02/2021 7:19 PM Age: 31 years old Clinical indication: Weakness, extremity; Left; Patient HX: HX of stroke; Additional info: CVA TECHNIQUE: Imaging protocol: Computed tomography of the head without contrast. Radiation optimization: All CT scans at this facility use at least one of these dose optimization techniques: automated exposure control; mA and/or kV adjustment per patient size (includes targeted exams where dose is matched to clinical indication); or iterative reconstruction. COMPARISON: CT head wo con* [id number] 02/13/2021 6:19 PM RADIATION DOSE METRICS: Total DLP (mGy-cm): 887.34 FINDINGS: Brain: Normal. No hemorrhage. Unremarkable white matter. No mass effect. Cerebral ventricles: No ventriculomegaly. Paranasal sinuses: Visualized sinuses are unremarkable. No fluid levels. Mastoid air cells: Visualized mastoid air cells are well aerated. Bones/joints: Unremarkable. No acute fracture. Soft tissues: Unremarkable. CT/CT head wo con* [id number] IMPRESSION: No acute intracranial abnormality.
--- NOTE | 2021-04-02 19:39 | W.ED.GENADLT ---
HPI - General Adult General: Chief complaint: General Medical Stated complaint: loss of vision, bilateral hand numbness poststroke Time Seen by Provider: 04/02/21 19:30 Source: patient Mode of arrival: ambulatory Limitations: no limitations History of Present Illness: HPI narrative: 31-year-old female who states she has had a headache since yesterday she states that with this headache she has been having numbness to her left arm and leg. She states she had a similar episode back in February and they were concerned that she may have had a stroke CT head and CT angio were normal. She has follow-up with [facility] next week and they are planning on doing an MRI but she called him with these new symptoms they recommended her come to the ER. States she had had a headache with her symptoms back in February as well. States she has a history of migraines denies any worsening improving factors. Associated symptoms: Reports headache(s); Deny chest pain, dyspnea, nausea, rash or vomiting Review of Systems Const: Denies: fever(s), chills, body aches or change in appetite Eyes: Denies: blurry vision or eye discomfort ENMT: Denies: throat pain or dental pain Card: Denies: chest pain Resp: Denies: dyspnea GI: Denies: abdominal pain, nausea, vomiting or diarrhea : Denies: dysuria Musc: Denies: neck pain or back pain Skin/Breast: Denies: rash Neuro: Reports: headache(s) and sensory changes Psych: Denies: depression Marvel/Lymph: Denies: easy bruising All/Imm: Denies: urticaria PFSH ED PFSH: Medical History (Updated 04/02/21 @ 20:50 by Jackson Daniel MD) Abnormal uterine bleeding (AUB) Asthma Depression Surgical History No pertinent past surgical history Family History Father Hypertension Stroke Denies family history of Colon cancer Ovarian cancer Diabetes Heart disease Hyperlipidemia Breast cancer Family history of thyroid problem Uterine cancer Social History Additional social history: - Tobacco use: Denies Alcohol use: Denies Drug use: Denies Physical Exam Const: COMMON NORMALS: no acute distress, patient oriented x3 and healthy appearing HENMT: COMMON NORMALS: normocephalic and atraumatic HEAD & SCALP: normocephalic and atraumatic Eye: COMMON NORMALS: Equal, round and reactive pupils present and EOMs intact bilaterally PUPIL: Yes Equal, round and reactive pupils present Neck/C-Spine: COMMON NORMALS: full ROM and supple Chest: COMMONS NORMALS: normal inspection of the chest and normal palpation of entire chest wall Resp: COMMON NORMALS: normal respiratory effort, No retractions, No use of accessory muscles and clear to auscultation bilaterally AUSCULTATION: clear to auscultation bilaterally Cardio: COMMON NORMALS: regular rate, regular rhythm and No murmurs present (Cardio) RATE: regular rate RHYTHM: regular rhythm GI: COMMON NORMALS: Normal to inspection, nondistended, normoactive bowel sounds present, Soft to palpation, non-tender and no masses PALPATION: Yes Soft to palpation Extremity: COMMON NORMALS: normal to inspection and full ROM Neuro: COMMON NORMALS: patient oriented x3, moves all extremities and no focal motor deficits Psych: COMMON NORMALS: mental status grossly normal, Normal thought process present and cooperative THOUGHT PROCESS: Normal thought process present Skin: COMMON NORMALS: no rashes or lesions noted and no wounds GENERAL SKIN EXAM: no rashes or lesions noted Course Vital Signs: Vital signs: Vital Signs Temperature 98 F 04/02/21 19:13 Pulse Rate 70 04/02/21 19:13 Respiratory Rate 16 04/02/21 19:13 Blood Pressure 162/82 04/02/21 19:13 Pulse Oximetry 99 04/02/21 19:13 MDM - General Adult MDM Narrative: Medical decision making narrative: Patient presents here with headache likely migraine with aura she had similar symptoms in February here she had paresthesias that are now resolved her headache is resolved head CT is normal she stable for discharge is to follow-up with [facility] as scheduled next week return if worsening she is no signs of hemorrhage or acute stroke. Lab Data: Labs: Lab Results 04/02/21 04/02/21 04/02/21 19:50 19:50 19:50 WBC 8.3 10^3/uL 10^3/ uL (4.0-10.0) RBC 4.57 10^6/uL 10^6 /uL (4.1-5.3) Hgb 13.5 g/dL g/dL (11.5-15.3) Hct 40.4 % % (37.0-47.0) MCV 88.4 fl fl (81-99) MCH 29.5 pg pg (28.0-34.0) MCHC 33.4 g/dL g/dL (30.0-36.0) RDW 12.5 % % (12.1-15.1) Plt Count 347 10^3/cmm 10^3 /cmm (130-400) MPV 9.6 fL fL (7.4-10.4) Neut % (Auto) 57.7 % % Lymph % (Auto) 35.9 % % [place] % (Auto) 4.7 % % Eos % (Auto) 1.2 % % Baso % (Auto) 0.4 % % Neut # (Auto) 4.76 10^3/uL 10^3 /uL (1.8-7.7) Lymph # (Auto) 3.0 10^3/uL 10^3/ uL (0.8-4.8) [place] # (Auto) 0.4 10^3/uL 10^3/ uL (0.2-0.9) Eos # (Auto) 0.1 10^3/uL 10^3/ uL (0.0-0.8) Baso # (Auto) 0.0 10^3/uL 10^3/ uL (0.0-0.1) Nucleated RBC % (a uto) 0 % % Nucleated RBCs # 0.0 /100WBC /100W BC Sodium 137 mmol/L mmol/L (136-145) Potassium 3.6 mmol/L mmol/L (3.5-5.1) Chloride 102 mmol/L mmol/L (98-107) Carbon Dioxide 19 mmol/L L mmol/ L (22-29) Anion Gap 19.6 H (5-19) BUN 11 mg/dL mg/dL (6-20) Creatinine 0.5 mg/dL mg/dL (0.5-0.9) GFR Calculation 145.9 mL/min H mL /min (90-130) Glucose 116 mg/dL H mg/dL (65-115) Calculated Osmolal ity 284 mOsm/kg L mOs m/kg (285-295) Calcium 8.8 mg/dL mg/dL (8.5-10.5) Total Bilirubin 0.2 mg/dL mg/dL (0.15-1.2) AST 16 U/L U/L (0-32) ALT 15 U/L U/L (0-33) Alkaline Phosphata se 103 IU/L IU/L (35-105) Total Protein 7.5 g/dL g/dL (6.6-8.7) Albumin 4.0 g/dL g/dL (3.5-5.2) Globulin 3.5 g/dL g/dL (1.3-4.6) HCG, Qual Negative (Negative) EKG Data^: EKG 1: Attestation: I personally reviewed and interpreted this EKG as follows: EKG interpretation date: 04/02/21 EKG interpretation time: 20:30 Interpretation: nsr hr [address] or t wave abnormalities qrs 100 qtc 423 Computer generated interpretation: Chest X-Ray 04/02/21 19:19 IMPRESSION: Right hilar to lower lobe atelectasis versus minimal infiltrate. Head CT 04/02/21 19:19 IMPRESSION: No acute intracranial abnormality. Discharge Plan Discharge Patient Disposition: Home Clinical Impression: Paresthesia Headache Qualifiers: Headache type: unspecified Headache chronicity pattern: unspecified pattern Intractability: not intractable Qualified Code(s): R51.9 - Headache, unspecified Condition: Stable Prescriptions: No Action multivitamin Tablet 1 tab PO DAILY RF: 0 escitalopram oxalate 10 mg tablet 10 mg PO DAILY RF: 0 ibuprofen 800 mg tablet 800 mg PO TID Qty: 30 RF: 1 lidocaine-epinephrine (PF) 2 %-1:200,000 solution 1 ml Infiltration ONCE Qty: 20 RF: 0 povidone-iodine [Betadine Swabsticks] 10 % swab 1 applic topical ONCE Qty: 150 RF: 0 norethindrone acetate 5 mg tablet 5 mg PO DAILY Qty: 30 RF: 5 Discharge Orders: Discharge ED (Routine); Ordered 04/02/21 Ordered By: Jackson Daniel Referrals: Mirian Wilson DO [Primary Care Provider] - Discharge Diet: Advance as tolerated Discharge Activity: Resume usual activity Patient Instructions: Acute Headache (ED), Paresthesia (ED) Coding Level of Care Code 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
[2021-04-02 19:55] LABS: Basophils % 0.4 %; Eosinophils # 0.1 10^3/uL (0.0-0.8); Eosinophils % 1.2 %; Hematocrit 40.4 % (37.0-47.0); Hemoglobin 13.5 g/dL (11.5-15.3); Lymphocytes % 35.9 %; Mean Corpuscular HGB Conc 33.4 g/dL (30.0-36.0); Mean Corpuscular Hemoglobin 29.5 pg (28.0-34.0); Mean Corpuscular Volume 88.4 fl (81-99); Mean Platelet Volume 9.6 fL (7.4-10.4); Monocytes # 0.4 10^3/uL (0.2-0.9); Monocytes % 4.7 %; Neutrophils # 4.76 10^3/uL (1.8-7.7); Neutrophils % 57.7 %; Nucleated Red Blood Cells % 0 %; Platelet Count 347 10^3/cmm (130-400); Red Blood Count 4.57 10^6/uL (4.1-5.3); Red Cell Distribution Width 12.5 % (12.1-15.1); White Blood Count 8.3 10^3/uL (4.0-10.0)
[2021-04-02] MEDS: diphenhydrAMINE 50 mg/mL SDV 1mL IVP (20:14)
[2021-04-02] MEDS: metoclopramide 5 mg/mL SDV 2 mL 10 MG IVP (20:14)
[2021-04-02 20:22] LABS: HCG, Serum Qual Negative (Negative)
[2021-04-02 20:45] LABS: Alanine Aminotransferase 15 U/L (0-33); Alkaline Phosphatase 103 IU/L (35-105); Anion Gap 19.6 (5-19); Aspartate Amino Transferase 16 U/L (0-32); Blood Urea Nitrogen 11 mg/dL (6-20); Calcium 8.8 mg/dL (8.5-10.5); Carbon Dioxide 19 mmol/L (22-29); Chloride 102 mmol/L (98-107); Globulin 3.5 g/dL (1.3-4.6); Glomerular Filtration Rate 145.9 mL/min (90-130); Glucose 116 mg/dL (65-115); Osmolality Calculated 284 mOsm/kg (285-295); Potassium 3.6 mmol/L (3.5-5.1); Sodium 137 mmol/L (136-145); Total Bilirubin 0.2 mg/dL (0.15-1.2); Total Protein 7.5 g/dL (6.6-8.7)
[2021-04-02 21:07] VITALS: BP 111/66; PULSE 71; RESP 16; O2SAT 96
== END 2021-04-02 21:08 | disposition home or self-care (01) ==
PROVIDERS: Emergency Provider Emergency Medicine; PCP Family Medicine
DX: R51.9 Headache, unspecified (principal); R20.2 Paresthesia of skin
CPT/HCPCS: 70450; 71045; 80053; 84703; 85025; 93005; 96374; 96375; 99283; J1200; J2765

== ENCOUNTER → 2021-08-03 14:43 | Outpatient (BNVA) | payer MEDICAID, SELFPAY | PROVIDERS: PCP Family Medicine; Visit Provider Specialist | DX: R56.9 Unspecified convulsions (principal) | CPT/HCPCS: 95816 ==

== ENCOUNTER 2021-09-08 16:09 | Emergency (ER) | payer MEDICAID, SELFPAY ==
--- NOTE | 2021-09-08 16:11 | CT_ITS ---
WS: [id number] CT HEAD NONCONTRAST HISTORY: stroke TECHNIQUE: Contiguous axial imaging performed through the brain in 2.5 mm imaging. Bone and soft tiss ue windows. Sagittal and coronal reformats reviewed. All CT scans at [facility] use at least one of these dose optimization techniques: automated exposure control; mA and/or kV adjustment per pa tient size (includes targeted exams where dose is matched to clinical indication); or iterative recon struction. DLP: 938.68 mGy-cm. COMPARISON: 04/02/2021 No acute intracranial hemorrhage, midline shift or mass effect. No atrophy or prior infarcts or herniation. Ventricles: Normal size with no hydrocephalus. Normal variant cavum septum et pellucidum. Paranasal sinuses: As visualized are clear. Mastoid air cells: Well pneumatized. Calvarium and scalp: Skull is intact with no soft tissue edema or swelling. CT/CT head wo con* [id number] IMPRESSION: Negative head CT. Notified Manuel Bishop DO at 09/08/2021 4:20 PM.
--- NOTE | 2021-09-08 16:17 | W.ED.NEUROSD ---
HPI - Neuro Symptoms/Deficit General: Chief Complaint: Neuro Symptoms/Deficit Stated Complaint: possible stroke Time Seen by Provider: 09/08/21 16:14 Source: patient Mode of arrival: EMS History of Present Illness: 31-year-old female who approximately 40 to 45 minutes prior to arrival began having difficulty with speech and reported left-sided weakness. Stroke alert was called on the family EMS was in route after report of right-sided facial drooping. On arrival here he did not really appreciate any facial droop and she followed commands had symmetrical facial movements she had some almost breakaway like weakness in the left leg and weakness with prosthetic assistant in the left arm although I did observe her manipulating her left hand while she was doing a CT. Onset (ago): minute(s) Last Observed Normal: 15:15 Location: speech Severity: mild Quality: weak Relieving factors: none Exacerbating factors: none Context: sudden onset Associated symptoms: Reports malaise and weakness; Deny chest pain, nausea or vomiting Treatments Prior to Arrival: none Review of Systems Const: Reports: malaise; Denies: fever(s), chills or fatigue ENMT: Denies: throat pain, ear or mastoid pain, nasal discharge or nasal congestion Card: Denies: chest pain, palpitations, edema, dyspnea on exertion or orthopnea Resp: Denies: dyspnea, productive cough or non-productive cough GI: Denies: abdominal pain, nausea, vomiting, hematemesis, coffee ground emesis, diarrhea, constipation, bloating, hematochezia or melena : Denies: flank pain, difficulty voiding, dysuria, urinary frequency or urinary urgency Skin/Breast: Denies: rash or pruritus PFSH ED PFSH: Medical History (Updated 09/08/21 @ 18:15 by Manuel Bishop DO) Abnormal uterine bleeding (AUB) Asthma Depression Surgical History No pertinent past surgical history Family History Father Hypertension Stroke Denies family history of Colon cancer Ovarian cancer Diabetes Heart disease Hyperlipidemia Breast cancer Family history of thyroid problem Uterine cancer Social History Additional social history: - Tobacco use: Denies Alcohol use: Denies Drug use: Denies NIH stroke score NIHSS: Level Of Consciousness - 1a: 0 Level Of Consciousness Questions - 1b: Both Correct Level Of Consciousness Commands - 1c: Both Correct Best Gaze - 2: Normal Visual Wilkerson - 3: No Visual Loss Facial Palsy - 4: Normal Motor Arm Right - 5: No Drift Motor Arm Left - 5: No Drift Motor Leg Right - 6: No Drift Motor Leg Left - 6: No Drift Limb Ataxia - 7: Absent Sensory - 8: Normal Best Language - 9: No Aphasia Dysarthia - 10: Mild/Moderate Dysarthia Extinction And Inattention - 11: 0 Score: Total Score: 1 Physical Exam Const: ORIENTATION/CONSCIOUSNESS: Yes awake, Yes oriented to person, Yes oriented to place and Yes oriented to time HENMT: COMMON NORMALS: normocephalic, atraumatic and hearing grossly normal bilaterally HEAD & SCALP: normocephalic and atraumatic Neck/C-Spine: COMMON NORMALS: no JVD Resp: COMMON NORMALS: normal respiratory effort, No retractions, No use of accessory muscles and clear to auscultation bilaterally AUSCULTATION: clear to auscultation bilaterally Cardio: COMMON NORMALS: no JVD, regular rate, regular rhythm and No murmurs present (Cardio) RATE: regular rate RHYTHM: regular rhythm GI: COMMON NORMALS: Soft to palpation and No hepatosplenomegaly present AUSCULTATION: Yes normoactive bowel sounds PALPATION: Yes Soft to palpation, No Tenderness to palpation present (GI), No Guarding due to palpation present (GI) and Yes No hepatosplenomegaly present Extremity: COMMON NORMALS: normal to inspection, capillary refill normal, no clubbing, cyanosis or edema, no calf tenderness and no pedal edema Neuro: SENSORIUM/ORIENTATION: Yes oriented to person, Yes oriented to place and Yes oriented to time Skin: COMMON NORMALS: no rashes or lesions noted GENERAL SKIN EXAM: no rashes or lesions noted Course Vital Signs: Vital signs: Vital Signs Temperature 98.2 F 09/08/21 16:19 Pulse Rate 75 09/08/21 16:40 Respiratory Rate 17 09/08/21 18:31 Blood Pressure 140/75 09/08/21 18:31 Pulse Oximetry 97 09/08/21 18:31 MDM - Neuro Symptoms/Deficit Medical Decision Making Patient's episode today resolved completely by the time of discharge. CT head was negative she is recently had CTA head and neck this was not repeated. She is also had EEG this spring and had another one several years ago with a similar type presentation. His eye doctor states each of these episodes are associated with a preceding headache. They always resolved. I suspect she is having a migraine variant that is causing the symptoms. I discussed Dr. Myrick she shares similar concern we have talked about doing a sleep deprived EEG but noticed that she had a sleep deprived EEG several years ago that was also negative as well as similar presentation. We are to get her set up for an outpatient MRI of the head with contrast and then follow-up with neurology. Medical Records I reviewed the patient's medical records. Lab Data I reviewed the patient's lab results. : 09/08/21 16:40 09/08/21 16:[address] 09/08/21 16:11 IMPRESSION: Negative head CT. Notified Manuel Bishop DO at 09/08/2021 4:20 PM. Laboratory Results WBC 8.1 10^3/uL (4.0-10.0) 09/08/21 16:40 RBC 4.64 10^6/uL (4.1-5.3) 09/08/21 16:40 Hgb 13.7 g/dL (11.5-15.3) 09/08/21 16:40 Hct 41.3 % (37.0-47.0) 09/08/21 16:40 MCV 89.0 fl (81-99) 09/08/21 16:40 MCH 29.5 pg (28.0-34.0) 09/08/21 16:40 MCHC 33.2 g/dL (30.0-36.0) 09/08/21 16:40 RDW 12.6 % (12.1-15.1) 09/08/21 16:40 Plt Count 290 10^3/cmm (130-400) 09/08/21 16:40 MPV 10.4 fL (7.4-10.4) 09/08/21 16:40 Neut % (Auto) 65.8 % 09/08/21 16:40 Lymph % (Auto) 26.4 % 09/08/21 16:40 [place] % (Auto) 7.0 % 09/08/21 16:40 Eos % (Auto) 0.5 % 09/08/21 16:40 Baso % (Auto) 0.2 % 09/08/21 16:40 Neut # (Auto) 5.34 10^3/uL (1.8-7.7) 09/08/21 16:40 Lymph # (Auto) 2.1 10^3/uL (0.8-4.8) 09/08/21 16:40 [place] # (Auto) 0.6 10^3/uL (0.2-0.9) 09/08/21 16:40 Eos # (Auto) 0.0 10^3/uL (0.0-0.8) 09/08/21 16:40 Baso # (Auto) 0.0 10^3/uL (0.0-0.1) 09/08/21 16:40 Nucleated RBC % (auto) 0 % 09/08/21 16:40 Nucleated RBCs # 0.0 /100WBC 09/08/21 16:40 PT 13.00 SECONDS (12.1-14.9) 09/08/21 16:52 INR 0.95 (0.8-1.2) 09/08/21 16:52 APTT 28.8 SECONDS (23.9-36.7) 09/08/21 16:52 Sodium 137 mmol/L (136-145) 09/08/21 16:40 Potassium 3.8 mmol/L (3.5-5.1) 09/08/21 16:40 Chloride 103 mmol/L (98-107) 09/08/21 16:40 Carbon Dioxide 22 mmol/L (22-29) 09/08/21 16:40 Anion Gap 15.8 (5-19) 09/08/21 16:40 BUN 12 mg/dL (6-20) 09/08/21 16:40 Creatinine 0.7 mg/dL (0.5-0.9) 09/08/21 16:40 GFR Calculation 98.9 mL/min (90-130) 09/08/21 16:40 Glucose 95 mg/dL (65-115) 09/08/21 16:40 POC Glucose 85 mg/dL (70-110) 09/08/21 16:17 Calculated Osmolality 284 mOsm/kg (285-295) L 09/08/21 16:40 Calcium 9.2 mg/dL (8.5-10.5) 09/08/21 16:40 Total Bilirubin 0.2 mg/dL (0.15-1.2) 09/08/21 16:40 AST 20 U/L (0-32) 09/08/21 16:40 ALT 21 U/L (0-33) 09/08/21 16:40 Alkaline Phosphatase 95 IU/L (35-105) 09/08/21 16:40 Total Protein 7.8 g/dL (6.6-8.7) 09/08/21 16:40 Albumin 4.1 g/dL (3.5-5.2) 09/08/21 16:40 Globulin 3.7 g/dL (1.3-4.6) 09/08/21 16:40 Urine Color Yellow (Yellow) 09/08/21 17:00 Urine Appearance Sl hazy (CLEAR) 09/08/21 17:00 Urine pH 5.0 (5-7) 09/08/21 17:00 Ur Specific [place] 1.025 (1.005-1.030) 09/08/21 17:00 Urine Protein Neg (Negative) 09/08/21 17:00 Urine Glucose (UA) Norm (Normal) 09/08/21 17:00 Urine Ketones Negative (Negative) 09/08/21 17:00 Urine Blood 3+ (Negative) H 09/08/21 17:00 Urine Nitrate Negative (Negative) 09/08/21 17:00 Urine Bilirubin Neg (Negative) 09/08/21 17:00 Urine Urobilinogen Norm mg/dL (Negative) 09/08/21 17:00 Ur Leukocyte Esterase 2+ (Negative) H 09/08/21 17:00 Urine RBC 5-10 /hpf (0-2) H 09/08/21 17:00 Urine WBC 10-15 /hpf (0-5) H 09/08/21 17:00 Ur Squamous Epith Cells 0-4 /hpf (0-5) H 09/08/21 17:00 Amorphous Sediment Not Reportable 09/08/21 17:00 Urine Bacteria 1+ /hpf (NONE) H 09/08/21 17:00 Urine Opiates Screen Negative ng/mL (Negative) 09/08/21 17:00 Ur Barbiturates Screen Negative ng/mL (Negative) 09/08/21 17:00 Ur Phencyclidine Scrn Negative ng/mL (Negative) 09/08/21 17:00 Ur Amphetamines Screen Negative ng/mL (Negative) 09/08/21 17:00 U Benzodiazepines Scrn Negative ng/mL (Negative) 09/08/21 17:00 Urine Cocaine Screen Negative ng/mL (Negative) 09/08/21 17:00 U Marijuana (THC) Screen Negative ng/mL (Negative) 09/08/21 17:00 Discharge Plan Discharge Patient Disposition: Home Clinical Impression: Headache, variant migraine Condition: Stable Prescriptions: No Action multivitamin Tablet 1 tab PO DAILY 0RF escitalopram oxalate 10 mg tablet 10 mg PO DAILY 0RF ibuprofen 800 mg tablet 800 mg PO TID PRN (Reason: Pain) 0RF Discharge Orders: Discharge ED (Routine); Ordered 09/08/21 Ordered By: Manuel Bishop Referrals: Mirian Wilson DO [Primary Care Provider] - Patient Instructions: Opioid Safety Activity Restrictions/Additional Instructions: Case management make arrangements for you to have an outpatient MRI of the head as well as follow-up with neurology. Coding Level of Care Code ED Range Feeder for Shonda Fwd Exam Comprehensive
[2021-09-08 16:19] VITALS: BP 130/82; PULSE 98; RESP 20; TEMP 36.8; O2SAT 96; BMI 43.4
[2021-09-08 16:21] LABS: Glucose Point of Care 85 mg/dL (70-110)
[2021-09-08 16:25] VITALS: BP 130/82; PULSE 73; RESP 19; O2SAT 96
[2021-09-08 16:40] VITALS: BP 140/75; PULSE 75; RESP 17; O2SAT 97
--- NOTE | 2021-09-08 16:40 | ECG_ITS ---
[facility] Test Date: 2021-09-08 Pat Name: Mery Grant Department: Room: Gender: Female Driver Wheelchair: : 1990 Requested By: Manuel Molina Order Number: [id number] Payal MD: Kiki Duffy M.D. Measurements Intervals [place] Rate: 100 P: 58 [place]: 153 QRS: 16 QRSD: 85 T: 20 QT: 324 QTc: 418 Interpretive Statements SINUS TACHYCARDIA POSSIBLE LEFT ATRIAL ENLARGEMENT [-0.1mV P-WAVE IN V1/V2] ABNORMAL RHYTHM ECG Compared to ECG 04/02/2021 20:30:43 Sinus rhythm no longer present T-wave abnormality no longer present Electronically Signed On 09-08-2021 20:07:05 CDT by Kiki Duffy M.D. [email or web address] SoftwareMission Product Holdingsohiohealth o'bleness hospital.Jobydu/store/[id number]
[2021-09-08 17:10] LABS: Basophils % 0.2 %; Eosinophils % 0.5 %; Hematocrit 41.3 % (37.0-47.0); Hemoglobin 13.7 g/dL (11.5-15.3); Lymphocytes # 2.1 10^3/uL (0.8-4.8); Lymphocytes % 26.4 %; Mean Corpuscular HGB Conc 33.2 g/dL (30.0-36.0); Mean Corpuscular Hemoglobin 29.5 pg (28.0-34.0); Mean Platelet Volume 10.4 fL (7.4-10.4); Monocytes # 0.6 10^3/uL (0.2-0.9); Neutrophils # 5.34 10^3/uL (1.8-7.7); Neutrophils % 65.8 %; Nucleated Red Blood Cells % 0 %; Platelet Count 290 10^3/cmm (130-400); Red Blood Count 4.64 10^6/uL (4.1-5.3); Red Cell Distribution Width 12.6 % (12.1-15.1); White Blood Count 8.1 10^3/uL (4.0-10.0)
[2021-09-08 17:15] LABS: INR 0.95 (0.8-1.2)
[2021-09-08 17:16] LABS: Partial Thromboplastin Time 28.8 SECONDS (23.9-36.7)
[2021-09-08 17:20] LABS: Alanine Aminotransferase 21 U/L (0-33); Albumin Level 4.1 g/dL (3.5-5.2); Alkaline Phosphatase 95 IU/L (35-105); Anion Gap 15.8 (5-19); Aspartate Amino Transferase 20 U/L (0-32); Blood Urea Nitrogen 12 mg/dL (6-20); Calcium 9.2 mg/dL (8.5-10.5); Carbon Dioxide 22 mmol/L (22-29); Chloride 103 mmol/L (98-107); Globulin 3.7 g/dL (1.3-4.6); Glomerular Filtration Rate 98.9 mL/min (90-130); Glucose 95 mg/dL (65-115); Osmolality Calculated 284 mOsm/kg (285-295); Potassium 3.8 mmol/L (3.5-5.1); Sodium 137 mmol/L (136-145); Total Bilirubin 0.2 mg/dL (0.15-1.2); Total Protein 7.8 g/dL (6.6-8.7)
[2021-09-08 17:31] LABS: Protein Urine Neg (Negative); Specific Gravity, Urine 1.025 (1.005-1.030); Urine Appearance SL Hazy (CLEAR); Urine Color Yellow (Yellow)
[2021-09-08 17:32] LABS: Add Urine Microscopic? YES; Bilirubin Urine Neg (Negative); Blood Urine 3+ (Negative); Glucose Urine UA Norm (Normal); Ketones Urine Negative (Negative); Leukocyte Esterase Urine 2+ (Negative); Nitrate Urine Negative (Negative); Urobilinogen Urine Norm (Negative)
[2021-09-08 17:38] LABS: Add Urine Culture? Yes; Bacteria Urine 1+ /hpf; Squamous Epithelial Cell Urine 0-4 /hpf (0-5)
[2021-09-08 18:31] VITALS: BP 140/75; RESP 17; O2SAT 97
[2021-09-08 20:13] LABS: Amphetamines Screen Urine Negative (Negative); Barbiturates Screen Urine Negative (Negative); Benzodiazepines Screen Urine Negative (Negative); Cocaine Screen Urine Negative (Negative); Opiate Screen Urine Negative (Negative); PCP Screen Urine Negative (Negative); THC Screen Urine Negative (Negative)
--- NOTE | 2021-09-15 08:07 | DCPLANNER ---
Addendum entered by Magaly Mcclure 10/05/21 13:40: Patient had a follow up appointment scheduled for 09.17.21 with neurology - patient did attend appointment. Original Note: manager customer had message to schedule a follow up appointment for patient with neurology. manager customer sent patients information to the front office staff at neurology. Patients information will be printed and reviewed. Clinic will call patient with appointment information.
--- NOTE | 2021-09-16 14:04 | DCPLANNER ---
Addendum entered by Magaly Mcclure 11/27/21 14:41: Patient had a MRI scheduled - patient did attend appointment. Original Note: infrastructure manager had message to schedule an outpatient MRI for patient. infrastructure manager faxed signed order for an MRI to centralized scheduling,who will call patient with appointment information.
== END 2021-09-08 18:35 | disposition home or self-care (01) ==
PROVIDERS: Emergency Provider Family Medicine; PCP Family Medicine
DX: G43.809 Other migraine, not intractable, without status migrainosus (principal)
CPT/HCPCS: 36416; 70450; 80053; 80306; 81001; 82962; 85025; 85610; 85730; 87086; 93005; 99285

== ENCOUNTER 2021-09-10 16:45 | Emergency (ER) | payer MEDICAID, SELFPAY ==
[2021-09-10 16:45] VITALS: BP 143/79; PULSE 102; RESP 17; O2SAT 98
--- NOTE | 2021-09-10 17:48 | ECG_ITS ---
[facility] Test Date: 2021-09-10 Pat Name: Mery Grant Department: Room: Gender: Female Funeral Car Driver: : 1990 Requested By: Hussein Greenberg Order Number: [id number] Payal MD: Kyle Keen M.D. Measurements Intervals [place] Rate: 86 P: 66 [place]: 153 QRS: 39 QRSD: 94 T: 40 QT: 351 QTc: 422 Interpretive Statements SINUS RHYTHM Compared to ECG 09/08/2021 16:23:37 Sinus tachycardia no longer present Electronically Signed On 09-10-2021 18:58:18 CDT by Kyle Keen M.D. [email or web address] behavioral health systemCarmichael Training Systemslouis stokes cleveland va medical centerMovigo/store/[id number]
--- NOTE | 2021-09-10 17:51 | ED_ITS ---
HPI - Neuro Symptoms/Deficit General: Chief Complaint: Neuro Symptoms/Deficit Stated Complaint: CVA Time Seen by Provider: 09/10/21 16:52 Source: patient and family (mother) Mode of arrival: EMS Limitations: no limitations History of Present Illness: This patient returns to our emergency department via EMS. She returns from home. She was here 2 days ago for a episode that was evaluated and determined to be likely a migraine variant versus some sort of atypical seizure disorder. She is had similar episodes in the past and been seen at [facility] as well as required admission here. She has had previous imaging in the past as well as 2 days ago all of which were normal. According to both the patient and the mother and she apparently has been sleeping for last couple of days since she left the emergency department. Mother states that her other daughter who was with this daughter today stated that she seemed to be waking up as usual and therefore became concerned and EMS was notified. The patient at my interview at this time states that she feels fine. She states she has been tired and sleepy but denies any complaint at this time. She denies headache focal weakness numbness etc. No difficulty with speech. Prior to the episode 2 days ago that brought her to the emergency depa rtment she had been up all night with a sick daughter. Patient specifically denies headache currently. She denies alcohol, street drug use etc. Her past history is remarkable for having seizures as a child and was placed on phenobarb for approximately 1 year and then taken off when she was seizure-free. She also apparently had vasovagal syncope during her teenage years. There is no history of any kind of limitations in her activities during her childhood and teenage years because of any kind of chronic medical problems. She has no history of arrhythmias, chest pain etc. There is no family history of migraine headaches, seizure disorder etc. The patient states that her episodes in the past was seemingly precipitated by headaches but she has not had a headache recently. She states that she started seeing a chiropractor approximately 3 weeks ago and that seems to have improved her headaches. She states she does not get any vigorous manipulation but only tissue massage. Associated symptoms: Reports no associated symptoms; Deny chest pain, nausea or vomiting Review of Systems Const: Denies: fever(s), chills or body aches Eyes: Denies: change in vision or blurry vision ENMT: Denies: throat pain, odynophagia, change in hearing or disequilibrium Card: Denies: chest pain, palpitations, irregular heart rhythm or edema Resp: Denies: dyspnea, productive cough or non-productive cough GI: Denies: abdominal pain, nausea or vomiting : Denies: flank pain, difficulty voiding, dysuria, urinary frequency or vaginal discharge Musc: Denies: neck pain, back pain, extremity pain or extremity swelling Skin/Breast: Denies: rash or pruritus Neuro: Reports: confusion and seizure-like activity; Denies: weakness in extremities, sensory changes, frequent falls or Slurred speech present Psych: Denies: depression, panic attacks, suicidal ideation or homicidal ideation Endo: Denies: polyuria or polydipsia All/Imm: Denies: urticaria PFSH ED PFSH: Medical History (Updated 09/10/21 @ 19:07 by Hussein Greenberg DO) Abnormal uterine bleeding (AUB) Asthma Depression Surgical History No pertinent past surgical history Family History Father Hypertension Stroke Denies family history of Colon cancer Ovarian cancer Diabetes Heart disease Hyperlipidemia Breast cancer Family history of thyroid problem Uterine cancer Social History Additional social history: - Tobacco use: Denies Alcohol use: Denies Drug use: Denies NIH stroke score NIHSS: Level Of Consciousness - 1a: 0 Level Of Consciousness Questions - 1b: Both Correct Level Of Consciousness Commands - 1c: Both Correct Best Gaze - 2: Normal Visual Wilkerson - 3: No Visual Loss Facial Palsy - 4: Normal Motor Arm Right - 5: No Drift Motor Arm Left - 5: No Drift Motor Leg Right - 6: No Drift Motor Leg Left - 6: No Drift Limb Ataxia - 7: Absent Sensory - 8: Normal Best Language - 9: No Aphasia Dysarthia - 10: Normal Extinction And Inattention - 11: 0 Score: Total Score: 0 Physical Exam Narrative: EXAM NARRATIVE: Makes good eye contact. Her speech is goal-directed. She is fluent and calm and cooperative Const: COMMON NORMALS: no acute distress, patient oriented x3, healthy appear ing and alert NUTRITIONAL APPEARANCE: overweight ORIENTATI ON/CONSCIOUSNESS: Yes awake HENMT: COMMON NORMALS: normocephalic, atraumatic, Normal nasal mucous membranes and turbinates present and moist oral mucous membranes HEAD & SCALP: normal to inspection, normocephalic and atraumatic NOSE: Normal nasal mucous membranes and turbinates present Eye: COMMON NORMALS: Equal, round and reactive pupils present, EOMs intact bilaterally and conjunctivae normal CONJUNCTIVA: Yes conjunctivae normal PUPIL: Yes Equal, round and reactive pupils present Neck/C-Spine: COMMON NORMALS: full ROM, supple, no meningeal signs, Thyroid normal and No carotid bruits THYROID: Thyroid normal CERVICAL SPINE: Yes cervical ROM normal, No Cervical spine tenderness and No Paracervical muscle tenderness Chest: COMMONS NORMALS: normal inspection of the chest Resp: COMMON NORMALS: normal respiratory effort, No retractions, No use of ac cessory muscles and clear to auscultation bilaterally AUSCULTATION: clear to auscultation bilaterally Cardio: COMMON NORMALS: regular rate, regular rhythm, No murmurs present (Cardio) and Peripheral pulses 2+ throughout RATE: regular rate RHYTHM: regular rhythm PERIPHERAL PULSES: Peripheral pulses 2+ throughout GI: COMMON NORMALS: Normal to inspection, nondistended, normoactive bowel sounds present, Soft to palpation and non-tender PALPATION: Yes Soft to palpation : COMMON NORMALS: Yes no CVA tenderness BLADDER/KIDNEY EXAM: Yes no CVA tenderness Back/Pelvis: COMMON NORMALS: no CVA tenderness, thoracic and lumbar spine normal to inspection, no thoracic nor lumbar tenderness and thoraco-lumbar ROM normal Extremity: COMMON NORMALS: normal to inspection, full ROM, no calf tenderness and no pedal edema Neuro: COMMON NORMALS: patient oriented x3, moves all extremities, no focal motor deficits and no sensory deficits noted SENSORIUM/ORIENTATION: Yes alert MENINGEAL SIGNS: Yes no meningeal signs CRANIAL NERVES: Yes CN normal except as noted SPEECH: speech normal Psych: COMMON NORMALS: mental status grossly normal, cooperative and normal affect Skin: COMMON NORMALS: no rashes or lesions noted and turgor normal GENERAL SKIN EXAM: no rashes or lesions noted and turgor normal Course Reevaluation(s): Reevaluation #1: Patient remained stable. She is remained alert and interactive throughout her emergency department stay. No new or focal findings on repeat evaluation. Time: 19:03 Vital Signs: Vital signs: Vital Signs Pulse Rate 102 H 06/30/22 16:45 Respiratory Rate 17 09/10/21 16:45 Blood Pressure 143/79 09/10/21 16:45 Pulse Oximetry 98 09/10/21 16:45 MDM - Neuro Symptoms/Deficit Medical Decision Making Patient's repeat presentation for rather vague symptoms that have been evaluated multiple times in the past and most recently 2 days ago with normal imaging and normal lab work. Repeat examination here reveals her to be alert and no evidence of any clinical or focal findings on physical examination. Her screening laboratories EKG etc. are normal to 2 today. No evidence of arrhythmia, focal deficits, abnormal lab test. He has had previous imaging most recently 2 days ago as well as previous episodes in the past without any abnormalities discovered. She is also had normal EEGs in the past. She has a MRI scheduled coming up this following week as well as a follow-up with neurology. I think at this point certainly could suggest either psychogenic nonepileptic seizure disorder versus migraine variant as has been posited in the past. I did ask her to start taking 81 mg of enteric-coated aspirin until evaluated by neurology and. She voiced understanding of her current findings and their implications and limitations. Stable for discharge to continue outpatient work-up. Medical Records I reviewed the patient's medical records. Lab Data I reviewed the patient's lab results. : 09/10/21 18:05 09/10/21 18:05 Laboratory Results WBC 8.5 10^3/uL (4.0-10.0) 09/10/21 18:05 RBC 4.60 10^6/uL (4.1-5.3) 09/10/21 18:05 Hgb 13.3 g/dL (11.5-15.3) 09/10/21 18:05 Hct 40.8 % (37.0-47.0) 09/10/21 18:05 MCV 88.7 fl (81-99) 09/10/21 18:05 MCH 28.9 pg (28.0-34.0) 09/10/21 18:05 MCHC 32.6 g/dL (30.0-36.0) 09/10/21 18:05 RDW 12.6 % (12.1-15.1) 09/10/21 18:05 Plt Count 314 10^3/cmm (130-400) 09/10/21 18:05 MPV 9.9 fL (7.4-10.4) 09/10/21 18:05 Neut % (Auto) 72.5 % 09/10/21 18:05 Lymph % (Auto) 19.6 % 09/10/21 18:05 [place] % (Auto) 6.3 % 09/10/21 18:05 Eos % (Auto) 1.1 % 09/10/21 18:05 Baso % (Auto) 0.4 % 09/10/21 18:05 Neut # (Auto) 6.14 10^3/uL (1.8-7.7) 09/10/21 18:05 Lymph # (Auto) 1.7 10^3/uL (0.8-4.8) 09/10/21 18:05 [place] # (Auto) 0.5 10^3/uL (0.2-0.9) 09/10/21 18:05 Eos # (Auto) 0.1 10^3/uL (0.0-0.8) 09/10/21 18:05 Baso # (Auto) 0.0 10^3/uL (0.0-0.1) 09/10/21 18:05 Nucleated RBC % (auto) 0 % 09/10/21 18:05 Nucleated RBCs # 0.0 /100WBC 09/10/21 18:05 Sodium 139 mmol/L (136-145) 09/10/21 18:05 Potassium 4.1 mmol/L (3.5-5.1) 09/10/21 18:05 Chloride 104 mmol/L (98-107) 09/10/21 18:05 Carbon Dioxide 24 mmol/L (22-29) 09/10/21 18:05 Anion Gap 15.1 (5-19) 09/10/21 18:05 BUN 11 mg/dL (6-20) 09/10/21 18:05 Creatinine 0.5 mg/dL (0.5-0.9) 09/10/21 18:05 GFR Calculation 145.9 mL/min (90-130) H 09/10/21 18:05 Glucose 108 mg/dL (65-115) 09/10/21 18:05 POC Glucose 106 mg/dL (70-110) 09/10/21 18:05 Calculated Osmolality 288 mOsm/kg (285-295) 09/10/21 18:05 Calcium 9.1 mg/dL (8.5-10.5) 09/10/21 18:05 Total Bilirubin 0.2 mg/dL (0.15-1.2) 09/10/21 18:05 AST 18 U/L (0-32) 09/10/21 18:05 ALT 19 U/L (0-33) 09/10/21 18:05 Alkaline Phosphatase 90 IU/L (35-105) 09/10/21 18:05 Total Protein 7.3 g/dL (6.6-8.7) 09/10/21 18:05 Albumin 3.9 g/dL (3.5-5.2) 09/10/21 18:05 Globulin 3.4 g/dL (1.3-4.6) 09/10/21 18:05 Urine Opiates Screen Negative ng/mL (Negative) 09/10/21 18:05 Ur Barbiturates Screen Negative ng/mL (Negative) 09/10/21 18:05 Ur Phencyclidine Scrn Negative ng/mL (Negative) 09/10/21 18:05 Ur Amphetamines Screen Negative ng/mL (Negative) 09/10/21 18:05 U Benzodiazepines Scrn Negative ng/mL (Negative) 09/10/21 18:05 Urine Cocaine Screen Negative ng/mL (Negative) 09/10/21 18:05 U Marijuana (THC) Screen Negative ng/mL (Negative) 09/10/21 18:05 EKG Data EKG 1: EKG interpretation time: 18:19 Interpretation: Resting EKG reveals a ventricular rate of 86 bpm consistent with sinus rhythm. [place] interval is normal at 153 ms QRS is normal at 94 ms. QTc is normal at 395 ms. Normal intervals and normal axis. No acute ST-T wave changes. No preexcitation findings noted. Discharge Plan Discharge Patient Disposition: Home Clinical Impression: Psychogenic nonepileptic seizure Condition: Stable Prescriptions: No Action escitalopram oxalate 10 mg tablet 10 mg PO DAILY 0RF ibuprofen 800 mg tablet 800 mg PO TID PRN (Reason: Pain) 0RF albuterol sulfate 90 mcg/actuation Hfa Aerosol Inhaler 2 puff INHALATION Q6H PRN (Reason: Shortness Of Breath) 0RF Discharge Orders: Discharge ED (Routine); Ordered 09/10/21 Ordered By: Hussein Greenberg Referrals: Mirian Wilson, [Primary Care Provider] - Discharge Diet: Usual diet Discharge Activity: Increase activity as tolerated Patient Instructions: Opioid Safety Activity Restrictions/Additional Instructions: Do not drink alcohol, use street drugs, drink caffeinated beverages. Make sure that she gets 7 to 8 hours of sleep nightly. Take 81 mg of enteric-coated aspirin daily. coordinator volunteer services should be contacting you to ensure that you get your MRI and subsequent follow-up. If you develop any new persistent or worsening symptoms return to this or the nearest emergency department. Coding Level of Care Code ED Floor Tiling Professional for Shonda Fwkenyon Exam Comprehensive
[2021-09-10 18:09] LABS: Glucose Point of Care 106 mg/dL (70-110)
[2021-09-10 18:16] LABS: Basophils % 0.4 %; Eosinophils # 0.1 10^3/uL (0.0-0.8); Eosinophils % 1.1 %; Hematocrit 40.8 % (37.0-47.0); Hemoglobin 13.3 g/dL (11.5-15.3); Lymphocytes # 1.7 10^3/uL (0.8-4.8); Lymphocytes % 19.6 %; Mean Corpuscular HGB Conc 32.6 g/dL (30.0-36.0); Mean Corpuscular Hemoglobin 28.9 pg (28.0-34.0); Mean Corpuscular Volume 88.7 fl (81-99); Mean Platelet Volume 9.9 fL (7.4-10.4); Monocytes # 0.5 10^3/uL (0.2-0.9); Monocytes % 6.3 %; Neutrophils # 6.14 10^3/uL (1.8-7.7); Neutrophils % 72.5 %; Nucleated Red Blood Cells % 0 %; Platelet Count 314 10^3/cmm (130-400); Red Cell Distribution Width 12.6 % (12.1-15.1); White Blood Count 8.5 10^3/uL (4.0-10.0)
[2021-09-10 18:27] LABS: Amphetamines Screen Urine Negative (Negative); Barbiturates Screen Urine Negative (Negative); Benzodiazepines Screen Urine Negative (Negative); Cocaine Screen Urine Negative (Negative); Opiate Screen Urine Negative (Negative); PCP Screen Urine Negative (Negative); THC Screen Urine Negative (Negative)
[2021-09-10 18:35] LABS: Alanine Aminotransferase 19 U/L (0-33); Albumin Level 3.9 g/dL (3.5-5.2); Alkaline Phosphatase 90 IU/L (35-105); Anion Gap 15.1 (5-19); Aspartate Amino Transferase 18 U/L (0-32); Blood Urea Nitrogen 11 mg/dL (6-20); Calcium 9.1 mg/dL (8.5-10.5); Carbon Dioxide 24 mmol/L (22-29); Chloride 104 mmol/L (98-107); Globulin 3.4 g/dL (1.3-4.6); Glomerular Filtration Rate 145.9 mL/min (90-130); Glucose 108 mg/dL (65-115); Osmolality Calculated 288 mOsm/kg (285-295); Potassium 4.1 mmol/L (3.5-5.1); Sodium 139 mmol/L (136-145); Total Bilirubin 0.2 mg/dL (0.15-1.2); Total Protein 7.3 g/dL (6.6-8.7)
[2021-09-10 19:25] VITALS: BP 135/72; PULSE 83; RESP 19; TEMP 37.2; O2SAT 97
--- NOTE | 2021-09-16 15:12 | DCPLANNER ---
Addendum entered by Magaly Mcclure 11/27/21 14:48: Patient had an MRI scheduled - patient did attend appointment Addendum entered by Magaly Mcclure 10/05/21 09:25: Patient had a follow up appointment scheduled for 09.17.21 with neurology - patient did attend appointment. Original Note: project account manager had message to make sure that an MRI that was ordered by Dr. Bishop was scheduled. project account manager did fax an order for an MRI to centralized scheduling. project account manager also had message to schedule a follow up appointment for patient with neurology. project account manager sent patients information to the front office staff at neurology. Patients information will be printed and reviewed. Clinic will call patient with appointment information.
== END 2021-09-10 19:55 | disposition home or self-care (01) ==
PROVIDERS: Emergency Provider Emergency Medicine; PCP Family Medicine
DX: G40.89 Other seizures (principal)
CPT/HCPCS: 36416; 80053; 80306; 82962; 85025; 93005; 99284

== ENCOUNTER → 2021-09-17 14:53 | Outpatient (BNVA) | payer MEDICAID, SELFPAY | PROVIDERS: PCP Family Medicine; Visit Provider Specialist | DX: R56.9 Unspecified convulsions (principal); I49.9 Cardiac arrhythmia, unspecified; R00.0 Tachycardia, unspecified; G43.119 Migraine with aura, intractable, without status migrainosus; R55 Syncope and collapse | CPT/HCPCS: 99205 ==

== ENCOUNTER → 2021-09-24 10:13 | Outpatient (BNVA) | payer MEDICAID, SELFPAY | PROVIDERS: PCP Family Medicine; Visit Provider Internal Medicine Cardiovascular Disease | DX: R56.9 Unspecified convulsions (principal); I49.1 Atrial premature depolarization; R00.0 Tachycardia, unspecified | CPT/HCPCS: 93246 ==

== ENCOUNTER → 2021-10-06 10:25 | Outpatient (BNVA) | payer MEDICAID, SELFPAY | PROVIDERS: PCP Family Medicine; Referring Provider Specialist; Visit Provider Specialist | DX: R56.9 Unspecified convulsions (principal) | CPT/HCPCS: 95812; 95816 ==

== ENCOUNTER → 2021-10-27 07:50 | Outpatient (BNVA) | payer MEDICAID, SELFPAY | PROVIDERS: PCP Family Medicine; Visit Provider Specialist | DX: G40.909 Epilepsy, unspecified, not intractable, without status epilepticus (principal); G43.109 Migraine with aura, not intractable, without status migrainosus | CPT/HCPCS: 99214 ==

== ENCOUNTER 2021-10-29 10:07 | Outpatient (CLI) | payer MEDICAID, SELFPAY ==
--- NOTE | 2021-10-29 10:15 | MR_ITS ---
WS: [id number] MRI HEAD WITHOUT CONTRAST TECHNIQUE: Sagittal T1, T2 axial, T2 axial FLAIR, axial and coronal T1 images, axial susceptibility w eighted imaging, axial diffusion weighted images, and coronal T2 images were obtained. CLINICAL INFORMATION: G43.809 - Other migraine, not intractable, without status... COMPARISON: None. FINDINGS: Some images degraded by patient motion. No evidence of restricted diffusion to suggest acute ischemia. Normal nolan-white differentiation. No suspicious intracranial signal abnormalities. No extra-axial fluid collections. No evidence of mass o r mass effect. Cavum septum pellucidum and vergae. Mild mucosal thickening in the ethmoid air cells. Normal vascular flow voids at the skull base. No ex tra-axial fluid collections. No hemosiderin on the susceptibly weighted images. Normal optic chiasm a nd pituitary infundibulum. Normal cavernous sinuses and Meckel's cave. Normal temporal lobes and mary ocampal formations. MR/MR head wo con* [id number] IMPRESSION: 1. No evidence of restricted diffusion to suggest acute ischemia. 2. A few tiny foci of T2 hyperintensity in the frontal subcortical and periven tricular white matter of doubtful clinical significance but can be seen with mi graine headaches. 3. No hemosiderin on susceptibly weighted images. 4. Temporal lobes and hippocampal formations are normal in appearance. 5. Incidental cavum septum pellucidum and Verga.
== END 2021-10-29 10:08 | disposition home or self-care (01) ==
LOC: RAD 10:08
PROVIDERS: PCP Family Medicine; Visit Provider Specialist
DX: G43.809 Other migraine, not intractable, without status migrainosus (principal); F44.5 Conversion disorder with seizures or convulsions; S43.51XA Sprain of right acromioclavicular joint, initial encounter; X58.XXXA Exposure to other specified factors, initial encounter
CPT/HCPCS: 70551; 73030; 99214

== ENCOUNTER 2021-11-30 10:42 | Emergency (ER) | payer MEDICAID, SELFPAY ==
[2021-11-30] VITALS (20 sets, daily range): BP systolic 101–141; BP diastolic 57–83; PULSE 68–110; RESP 18–20; TEMP 36.6; O2SAT 94–100; BMI 32.5
--- NOTE | 2021-11-30 11:11 | ED_ITS ---
HPI - Seizure General: Chief Complaint: Seizure Stated Complaint: SEIZURES Time Seen by Provider: 11/30/21 10:53 History of Present Illness: HPI Narrative: 31-year-old female presents with multiple seizures over the last couple days. Patient reports that she had gone a month with no seizures. However patient reports that her seizures seem to be triggered by stress and she is currently moving and been under a lot of stress. Patient has had multiple EEGs with no findings of epilepsy. Patient reports that the seizures are very brief. Patient is scheduled to see her neurologist in 2 days for follow-up. She reports that about a month ago her medications were changed and she seemed to be doing well till the last 2 or 3 days when she got under the increased stress. No reports of recent illnesses, fevers chills nausea vomiting chest pain or cough. Seizure History: Yes Associated symptoms: Deny chest pain, chills or fever(s) Review of Systems Const: Denies: fever(s) or chills Eyes: Denies: change in vision or blurry vision ENMT: Denies: throat pain or ear or mastoid pain Card: Denies: chest pain, palpitations or irregular heart rhythm Resp: Denies: dyspnea, productive cough or wheezing GI: Denies: abdominal pain or nausea : Denies: flank pain or difficulty voiding Musc: Denies: neck pain or back pain Skin/Breast: Denies: rash or pruritus Neuro: Reports: headache(s) and seizure-like activity Psych: Reports: anxiety; Denies: depression PFS ED PFSH: Medical History (Updated 11/30/21 @ 14:26 by Rogelio Hull DO) Abnormal uterine bleeding (AUB) Asthma Depression Surgical History No pertinent past surgical history Family History Father Hypertension Stroke Denies family history of Colon cancer Ovarian cancer Diabetes Heart disease Hyperlipidemia Breast cancer Family history of thyroid problem Uterine cancer Social History Smoking and tobacco status: never smoked Additional social history: - Tobacco use: Denies Alcohol use: Denies Drug use: Denies Physical Exam Const: COMMON NORMALS: no acute distress, patient oriented x3, no limitations and alert Neck/C-Spine: COMMON NORMALS: no JVD Resp: COMMON NORMALS: normal respiratory effort, No use of accessory muscles and clear to auscultation bilaterally AUSCULTATION: clear to auscultation haris aterally Cardio: COMMON NORMALS: no JVD, regular rate and regular rhythm RATE: regular rate RHYTHM: regular rhythm GI: COMMON NORMALS: Normal to inspection, nondistended, normoactive bowel sounds present, Soft to palpation and non-tender PALPATION: Yes Soft to palpation Extremity: COMMON NORMALS: normal to inspection, full ROM and capillary refill normal Neuro: COMMON NORMALS: patient oriented x3, CN's II-XII intact bilaterally, moves all extremities and no focal motor deficits SENSORIUM/ORIENTATION: Yes alert Psych: COMMON NORMALS: mental status grossly normal, cooperative, normal affect and speech normal SPEECH: Yes normal speech Skin: COMMON NORMALS: no rashes or lesions noted and turgor normal GENERAL SKIN EXAM: no rashes or lesions noted and turgor normal Course Vital Signs: Vital signs: Vital Signs Temperature 98 F 11/30/21 10:42 Pulse Rate 96 11/30/21 10:42 Respiratory Rate 18 11/30/21 10:42 Blood Pressure 141/72 11/30/21 10:42 Pulse Oximetry 97 11/30/21 10:42 Oxygen Delivery Me thod Nasal Cannula 11/30/21 10:42 MDM - Seizure MDM Narrative Medical decision making narrative: Patient had multiple seizure like activity while here in the ER. Patient's seizure decline after receiving Keppra [address] Myrick who felt she would benefit from 24-hour EEG but that is not available here in our ER. Patient to be transferred to [facility] for further management excepting Lab Data Result diagrams: 11/30/21 12:13 11/30/21 12:13 Labs: Laboratory Results WBC 5.9 10^3/uL (4.0-10.0) 11/30/21 12:13 RBC 4.66 10^6/uL (4.1-5.3) 11/30/21 12:13 Hgb 13.8 g/dL (11.5-15.3) 11/30/21 12:13 Hct 46.1 % (37.0-47.0) 11/30/21 12:13 MCV 98.9 fl (81-99) 11/30/21 12:13 MCH 29.6 pg (28.0-34.0) 11/30/21 12:13 MCHC 29.9 g/dL (30.0-36.0) L 11/30/21 12:13 RDW 13.1 % (12.1-15.1) 11/30/21 12:13 Plt Count 276 10^3/cmm (130-400) 11/30/21 12:13 MPV 10.0 fL (7.4-10.4) 11/30/21 12:13 Neut % (Auto) 60.5 % 11/30/21 12:13 Lymph % (Auto) 32.7 % 11/30/21 12:13 [place] % (Auto) 5.6 % 11/30/21 12:13 Eos % (Auto) 0.7 % 11/30/21 12:13 Baso % (Auto) 0.5 % 11/30/21 12:13 Neut # (Auto) 3.59 10^3/uL (1.8-7.7) 11/30/21 12:13 Lymph # (Auto) 1.9 10^3/uL (0.8-4.8) 11/30/21 12:13 [place] # (Auto) 0.3 10^3/uL (0.2-0.9) 11/30/21 12:13 Eos # (Auto) 0.0 10^3/uL (0.0-0.8) 11/30/21 12:13 Baso # (Auto) 0.0 10^3/uL (0.0-0.1) 11/30/21 12:13 Nucleated RBC % (auto) 0 % 11/30/21 12:13 Nucleated RBCs # 0.0 /100WBC 11/30/21 12:13 Sodium 138 mmol/L (136-145) 11/30/21 12:13 Potassium 4.0 mmol/L (3.5-5.1) 11/30/21 12:13 Chloride 107 mmol/L (98-107) 11/30/21 12:13 Carbon Dioxide 21 mmol/L (22-29) L 11/30/21 12:13 Anion Gap 14.0 (5-19) 11/30/21 12:13 BUN 10 mg/dL (6-20) 11/30/21 12:13 Creatinine 0.7 mg/dL (0.5-0.9) 11/30/21 12:13 GFR Calculation 98.9 mL/min (90-130) 11/30/21 12:13 Glucose 81 mg/dL (65-115) 11/30/21 12:13 POC Glucose 87 mg/dL (70-110) 11/30/21 11:34 Calculated Osmolality 284 mOsm/kg (285-295) L 11/30/21 12:13 Calcium 9.0 mg/dL (8.5-10.5) 11/30/21 12:13 Total Bilirubin 0.3 mg/dL (0.15-1.2) 11/30/21 12:13 AST 18 U/L (0-32) 11/30/21 12:13 ALT 16 U/L (0-33) 11/30/21 12:13 Alkaline Phosphatase 90 U/L (35-105) 11/30/21 12:13 Total Protein 7.0 g/dL (6.6-8.7) 11/30/21 12:13 Albumin 4.0 g/dL (3.5-5.2) 11/30/21 12:13 Globulin 3.0 g/dL (1.3-4.6) 11/30/21 12:13 HCG, Qual Negative (Negative) 11/30/21 12:13 Discharge Plan Discharge Patient Disposition: Xfer Short-Term Hosp Clinical Impression: Functional neurological symptom disorder (conversion disorder), with abnormal movement, Witnessed seizure-like activity Condition: Stable Referrals: Mirian Wilson DO [Primary Care Provider] - Coding Level of Care Code ED Back Padder for Chg Fwd Exam Comprehensive
[2021-11-30] MEDS: midazolam 1 mg/mL INJ 2 mL 2 MG IVP (11:30)
[2021-11-30 11:37] LABS: Glucose Point of Care 87 mg/dL (70-110)
--- NOTE | 2021-11-30 12:02 | PC.NURSE ---
Mother comes out and gets this nurses attention that patient is having another seizure. Upon entering room pt appears to be having seizure-like activity. This RN lifts patient's arm up above the bed and lets go, she holds it in place independently, then turns onto her side independently while shaking. Pt also responds to painful stimuli.
[2021-11-30 12:23] LABS: Basophils % 0.5 %; Eosinophils % 0.7 %; Hematocrit 46.1 % (37.0-47.0); Hemoglobin 13.8 g/dL (11.5-15.3); Lymphocytes # 1.9 10^3/uL (0.8-4.8); Lymphocytes % 32.7 %; Mean Corpuscular HGB Conc 29.9 g/dL (30.0-36.0); Mean Corpuscular Hemoglobin 29.6 pg (28.0-34.0); Mean Corpuscular Volume 98.9 fl (81-99); Monocytes # 0.3 10^3/uL (0.2-0.9); Monocytes % 5.6 %; Neutrophils # 3.59 10^3/uL (1.8-7.7); Neutrophils % 60.5 %; Nucleated Red Blood Cells % 0 %; Platelet Count 276 10^3/cmm (130-400); Red Blood Count 4.66 10^6/uL (4.1-5.3); Red Cell Distribution Width 13.1 % (12.1-15.1); White Blood Count 5.9 10^3/uL (4.0-10.0)
[2021-11-30 12:50] LABS: HCG, Serum Qual Negative (Negative)
[2021-11-30 12:54] LABS: Alanine Aminotransferase 16 U/L (0-33); Alkaline Phosphatase 90 U/L (35-105); Aspartate Amino Transferase 18 U/L (0-32); Blood Urea Nitrogen 10 mg/dL (6-20); Carbon Dioxide 21 mmol/L (22-29); Chloride 107 mmol/L (98-107); Creatinine Clr Calc Pharmacy 149.0805; Glomerular Filtration Rate 98.9 mL/min (90-130); Glucose 81 mg/dL (65-115); Osmolality Calculated 284 mOsm/kg (285-295); Sodium 138 mmol/L (136-145); Total Bilirubin 0.3 mg/dL (0.15-1.2)
--- NOTE | 2021-11-30 13:13 | PC.PHAR ---
pt states she takes care of her own medications-pt states she has a albuterol inhaler [facility] states they havent filled this medication for the pt-pt states still takes lexapro 20mg daily rx last filled and picked up [facility] 09/30/21 30d/[facility] 11/21/21-pts states the pt has taken 21 tabs of lorazepam for seizures the last few days-[facility] has rx ready to be picked up from 11/21/21 states last time picked up was 09/21/21 30d/s-pt states not gotten ubrelvy yet states waiting on a pa-rx filled 10/27/21 25d/s for zonegran 100mg qid pt states the dr told her to take 400mg daily at noon-notes are made in the pharmacy comments
--- NOTE | 2021-11-30 19:29 | PC.NURSE ---
Called to pt room by family,pt laying on right side with full body seizure like activity from 1925 until 1927. No vomiting
[2021-11-30] MEDS: midazolam 1 mg/mL INJ 2 mL IVP (19:31)
--- NOTE | 2021-11-30 20:50 | PC.NURSE ---
Pt awake and states she needs to urinate. Bedside commode taken to room, assisted pt to bedside commode. Pt ambulated to sink in room to wash hands with minimal assistance. Pt returned to bed with minimal assistance
[2021-11-30] MEDS: acetaminophen 500 mg Tablet 1000 MG PO (21:16)
== END 2021-12-01 00:15 | disposition short-term general hospital (02) ==
PROVIDERS: Emergency Medicine; Emergency Provider Student in an Organized Health Care Education/Training Program; PCP Family Medicine
DX: G40.909 Epilepsy, unspecified, not intractable, without status epilepticus (principal); J45.909 Unspecified asthma, uncomplicated
CPT/HCPCS: 36416; 80053; 82962; 84703; 85025; 96365; 96375; 96376; 99285; J1953; J2250

== ENCOUNTER 2022-02-17 09:06 | Outpatient (CLI) | payer MEDICAID, SELFPAY | END 2022-02-17 09:07 | disposition home or self-care (01) | LOC: LAB 09:08 | PROVIDERS: PCP Family Medicine; Visit Provider Nurse Practitioner Women's Health | DX: N93.9 Abnormal uterine and vaginal bleeding, unspecified (principal) | CPT/HCPCS: 36415; 84702 ==

== ENCOUNTER → 2022-02-18 09:22 | Outpatient (BNVA) | payer MEDICAID, SELFPAY | PROVIDERS: PCP Family Medicine; Visit Provider Nurse Practitioner Family | DX: Z11.1 Encounter for screening for respiratory tuberculosis (principal) | CPT/HCPCS: 86580 ==

== ENCOUNTER → 2022-02-26 07:59 | Outpatient (BNVA) | payer MEDICAID, SELFPAY | PROVIDERS: PCP Family Medicine; Visit Provider Obstetrics & Gynecology | DX: N93.9 Abnormal uterine and vaginal bleeding, unspecified (principal); Z34.90 Encounter for supervision of normal pregnancy, unspecified, unspecified trimester | CPT/HCPCS: 85025 ==

== ENCOUNTER → 2022-04-01 14:21 | Outpatient (BNVA) | payer MEDICAID, SELFPAY | PROVIDERS: PCP Family Medicine; Visit Provider Nurse Practitioner Women's Health | DX: N92.6 Irregular menstruation, unspecified (principal) | CPT/HCPCS: 76830; 83036; 84439; 84443 ==

== ENCOUNTER 2022-11-06 18:54 | Emergency (ER) | payer OTHER, MEDICAID, SELFPAY ==
[2022-11-06 19:03] VITALS: BP 130/93; PULSE 124; RESP 14; TEMP 37.3; O2SAT 99; BMI 41.3
[2022-11-06] MEDS: LORazepam 2 mg/mL INJ 1 mL IVP (19:18)
--- NOTE | 2022-11-06 19:21 | XRR_ITS ---
PROCEDURE INFORMATION: Exam: XR Chest Exam date and time: 11/06/2022 7:31 PM Age: 32 years old Clinical indication: Injury or trauma; Other: Seizure; Additional info: No TECHNIQUE: Imaging protocol: Radiologic exam of the chest. Views: 1 view. COMPARISON: CR XR chest 1V portable [id number] 04/02/2021 7:48 PM FINDINGS: Lungs: Subtle asymmetric left basal opacities. Pleural spaces: Minimal blunting of the left lateral costophrenic sulcus.. No pneumothorax. Heart/Mediastinum: Normal cardiomediastinal silhouette with elevated intravascular volume compared to prior. Bones/joints: No acute osseous abnormality. XR/XR chest 1V portable [id number] IMPRESSION: 1. Subtle asymmetric left basal opacities which may reflect aspiration in the setting of seizure. 2. Possible trace left pleural effusion.
--- NOTE | 2022-11-06 19:21 | CTR_ITS ---
PROCEDURE INFORMATION: Exam: CT Head Without Contrast Exam date and time: 11/06/2022 7:43 PM Age: 32 years old Clinical indication: Condition or disease; Convulsions or seizures; Patient HX: Witnessed grand mal seizure. Recent medication change. History of epilepsy. ; Additional info: Sz TECHNIQUE: Imaging protocol: Computed tomography of the head without contrast. Radiation optimization: All CT scans at this facility use at least one of these dose optimization techniques: automated exposure control; mA and/or kV adjustment per patient size (includes targeted exams where dose is matched to clinical indication); or iterative reconstruction. REPORTING DATA: Count of CT and Cardiac NM exams in prior 12 months: This patient has received 0 known CTs and 0 known cardiac nuclear medicine studies in the 12 months prior to the current study. COMPARISON: MR head wo con* [id number] 10/29/2021 10:29 AM RADIATION DOSE METRICS: Total DLP (mGy-cm): 1095.58 FINDINGS: Brain: No acute intracranial hemorrhage. No mass effect or midline shift. Basal cisterns are patent. Normal nolan-white matter differentiation. Cerebral ventricles: Persistent cavum septum pellucidum which is a normal variant. No hydrocephalus. Paranasal sinuses: Visualized sinuses are unremarkable. Mastoid air cells: Visualized mastoid air cells are clear. Bones/joints: No acute calvarial fracture. Soft tissues: Unremarkable. CT/CT head wo con* [id number] IMPRESSION: No acute intracranial findings.
--- NOTE | 2022-11-06 19:41 | ED_ITS ---
HPI - Seizure General: Chief Complaint: Seizure Stated Complaint: Seizures Time Seen by Provider: 11/06/22 19:07 Source: patient History of Present Illness: HPI Narrative: 32-year-old female evidently with a history of seizure disorder. She has not been taking seizure medication recently, has she saw a physician at an outside facility who took her off her seizure medication. She recently saw her primary physician who was going to place her back on Ativan, nightly, but she had not filled this. Her last seizure was 3 days ago. She reports she was sitting in a chair at home when this 1 started. She does not remember the event. She did not lose control of her bladder or bowel, or bite her tongue. This was a normal seizure for her. Her problem is that she seems to keep having them today. MD complaint: seizure Onset (ago): minute(s) Description of Episode: loss of consciousness, tonic-clonic movement and post- event confusion Witnessed: Yes - by Bystander Trauma: No Seizure History: Yes Place: Home Possible Precipitating Event: none Associated symptoms: Deny chest pain, chills, confusion, cough, diaphoresis, fever(s), anorexia or short of breath Treatments prior to arrival: benzodiazepines Review of Systems Const: Denies: fever(s), chills or diaphoresis ENMT: Denies: throat pain Card: Denies: chest pain Resp: Denies: dyspnea or productive cough GI: Denies: abdominal pain, nausea or vomiting : Denies: flank pain Musc: Denies: neck pain or back pain Skin/Breast: Denies: rash Neuro: Denies: confusion PFS ED PFSH: Medical History Abnormal uterine bleeding (AUB) Asthma Depression No pertinent past medical history neghx: htn,dm,thyroid,dtv/pe PCP: [facility] [place] [facility] Surgical History No pertinent past surgical history Family History Father Hypertension Stroke Denies family history of Colon cancer Ovarian cancer Diabetes Heart disease Hyperlipidemia Breast cancer Family history of thyroid problem Uterine cancer Physical Exam Const: COMMON NORMALS: no acute distress GENERAL APPEARANCE: cooperative; not ill appearing and not frail appearing HENMT: COMMON NORMALS: normocephalic, atraumatic and Normal external nose present HEAD & SCALP: normocephalic and atraumatic FACE & SINUS: normal facial exam and face symmetric NOSE: Normal external nose present Eye: COMMON NORMALS: Equal, round and reactive pupils present and EOMs intact bilaterally PUPIL: Yes Equal, round and reactive pupils present Neck/C-Spine: GENERAL: Yes trachea midline Chest: CHEST: Yes Symmetrical chest wall rise Resp: COMMON NORMALS: normal respiratory effort, No retractions, No use of accessory muscles and clear to auscultation bilaterally AUSCULTATION: clear to auscultation bilaterally Cardio: COMMON NORMALS: regular rate and regular rhythm RATE: regular rate RHYTHM: regular rhythm GI: COMMON NORMALS: Normal to inspection, nondistended, normoactive bowel sounds present Extremity: COMMON NORMALS: no pedal edema Neuro: ALEK COMA SCALE: document GCS findings Odum coma scale eye opening: Spontaneous Alek coma scale verbal response: Orientated Odum coma scale motor response: Obey commands Odum coma scale total score: 15 SENSORY EXAM: Yes extremities (intact) Psych: COMMON NORMALS: speech normal SPEECH: Yes normal speech Skin: COMMON NORMALS: no rashes or lesions noted GENERAL SKIN EXAM: no rashes or lesions noted Course Vital Signs: Vital signs: Vital Signs Temperature 99.1 F 11/06/22 19:03 Pulse Rate 110 H 11/07/22 00:30 Respiratory Rate 16 11/07/22 00:30 Blood Pressure 130/89 11/07/22 00:30 Pulse Oximetry 100 11/07/22 00:30 Oxygen Delivery Me thod Room Air 11/06/22 19:03 MDM - Seizure MDM Narrative Medical decision making narrative: The patient presents with multiple short-term duration seizures today. They seem to be generalized in nature, although the tonic/clonic movement is not typical or rhythmic. She had 1 on arrival to her emergency department room. She is given 2 mg of Ativan for this. She had received 7.5 mg of Versed and 10 mg of Valium IV by EMS prior to arrival. She has also been loaded with Depacon. She evidently has had a somewhat recent reaction to Keppra in terms of allergy. After her episode in the ER, she is minimally postictal, but confusion cleared very quickly. The patient had another seizure like episode here. She was given 3 mg of haloperidol. This seems to have improved her seizures. No more episodes here. She has been up to the bathroom. She has walked. She is mildly groggy. On further interview with the patient's mother, she relates that the patient had an argument with her just prior to her first seizure episode this evening. She notes that stress and anxiety tend to bring her episodes on. In terms of laboratory work-up, white blood cell count is 11.5, other CBC markers are not remarkable. BMP and liver enzymes are not remarkable. Ethyl alcohol is less than 10. Head CT is negative. Chest x-ray shows subtle left basilar opacity or possible effusion, that is not likely clinically significant. She will be discharged to home. Evidently, she is supposed to pickle processor a prescription that is new for her seizure like episodes at her pharmacy tomorrow. Lab Data 11/06/22 19:35 11/06/22 19:35 Labs: Radiology Impressions Chest X-Ray 11/06/22 19:21 IMPRESSION: 1. Subtle asymmetric left basal opacities which may reflect aspiration in the setting of seizure. 2. Possible trace left pleural effusion. Head CT 11/06/22 19:21 IMPRESSION: No acute intracranial findings. Laboratory Results WBC 11.45 10^3/uL (3.29-11.43) H 11/06/22 19:35 RBC 4.46 10^6/uL (3.85-5.65) 11/06/22 19:35 Hgb 13.30 g/dL (11.27-16.99) 11/06/22 19:35 Hct 41.5 % (36-47) 11/06/22 19:35 MCV 93.0 fl (85-98) 11/06/22 19:35 MCH 29.8 pg (27-33) 11/06/22 19:35 MCHC 32.0 g/dL (30-55) 11/06/22 19:35 RDW 12.8 % (12.1-15.1) 11/06/22 19:35 Plt Count 318 10^3/cmm (157-399) 11/06/22 19:35 MPV 9.3 fL (7.4-10.4) 11/06/22 19:35 Neut % (Auto) 69.2 % 11/06/22 19:35 Lymph % (Auto) 25.0 % 11/06/22 19:35 [place] % (Auto) 4.7 % 11/06/22 19:35 Eos % (Auto) 0.6 % 11/06/22 19:35 Baso % (Auto) 0.3 % 11/06/22 19:35 Neut # (Auto) 7.92 10^3/uL (1.8-7.7) H 11/06/22 19:35 Lymph # (Auto) 2.9 10^3/uL (0.8-4.8) 11/06/22 19:35 [place] # (Auto) 0.5 10^3/uL (0.2-0.9) 11/06/22 19:35 Eos # (Auto) 0.1 10^3/uL (0.0-0.8) 11/06/22 19:35 Baso # (Auto) 0.0 10^3/uL (0.0-0.1) 11/06/22 19:35 Nucleated RBC % (auto) 0 % 11/06/22 19:35 Nucleated RBCs # 0.0 /100WBC 11/06/22 19:35 Sodium 139 mmol/L (136-145) 11/06/22 19:35 Potassium 3.8 mmol/L (3.5-5.1) 11/06/22 19:35 Chloride 105 mmol/L (98-107) 11/06/22 19:35 Carbon Dioxide 24 mmol/L (22-29) 11/06/22 19:35 Anion Gap 13.8 (5-19) 11/06/22 19:35 BUN 10 mg/dL (6-20) 11/06/22 19:35 Creatinine 0.9 mg/dL (0.5-0.9) 11/06/22 19:35 GFR Calculation 73.5 mL/min (90-130) L 11/06/22 19:35 Glucose 96 mg/dL (65-115) 11/06/22 19:35 Calculated Osmolality 287 mOsm/kg (285-295) 11/06/22 19:35 Calcium 8.9 mg/dL (8.5-10.5) 11/06/22 19:35 Phosphorus 2.1 mg/dL (2.5-4.5) L 11/06/22 19:35 Magnesium 2.0 mg/dL (1.7-2.3) 11/06/22 19:35 Total Bilirubin 0.2 mg/dL (0.15-1.2) 11/06/22 19:35 AST 18 U/L (0-32) 11/06/22 19:35 ALT 18 U/L (0-33) 11/06/22 19:35 Alkaline Phosphatase 82 U/L (35-105) 11/06/22 19:35 Creatine Kinase 63 U/L (26-192) 11/06/22 19:35 Total Protein 7.4 g/dL (6.6-8.7) 11/06/22 19:35 Albumin 4.0 g/dL (3.5-5.2) 11/06/22 19:35 Globulin 3.4 g/dL (1.3-4.6) 11/06/22 19:35 HCG, Qual Negative (Negative) 11/06/22 19:35 Urine Color Yellow (Yellow) 11/06/22 22:12 Urine Appearance Hazy (CLEAR) A 11/06/22 22:12 Urine pH 7 (5-7) 11/06/22 22:12 Ur Specific [place] 1.015 (1.005-1.030) 11/06/22 22:12 Urine Protein Neg (Negative) 11/06/22 22:12 Urine Glucose (UA) Norm (Normal) 11/06/22 22:12 Urine Ketones 1+ (Negative) H 11/06/22 22:12 Urine Blood Neg (Negative) 11/06/22 22:12 Urine Nitrate Negative (Negative) 11/06/22 22:12 Urine Bilirubin Neg (Negative) 11/06/22 22:12 Urine Urobilinogen 1 mg/dL (Negative) H 11/06/22 22:12 Ur Leukocyte Esterase 2+ (Negative) H 11/06/22 22:12 Urine RBC 0-4 /hpf (0-2) H 11/06/22 22:12 Urine WBC 25-40 /hpf (0-5) H 11/06/22 22:12 Ur Squamous Epith Cells 10-15 /hpf (0-5) H 11/06/22 22:12 Amorphous Sediment Not Reportable 11/06/22 22:12 Urine Bacteria Trace /hpf (NONE) 11/06/22 22:12 Urine Mucus 2+ /hpf 11/06/22 22:12 Urine Opiates Screen Negative ng/mL (Negative) 11/06/22 22:12 Ur Barbiturates Screen Negative ng/mL (Negative) 11/06/22 22:12 Ur Phencyclidine Scrn Negative ng/mL (Negative) 11/06/22 22:12 Ur Amphetamines Screen Negative ng/mL (Negative) 11/06/22 22:12 U Benzodiazepines Scrn Positive ng/mL (Negative) H 11/06/22 22:12 Urine Cocaine Screen Negative ng/mL (Negative) 11/06/22 22:12 U Marijuana (THC) Screen Negative ng/mL (Negative) 11/06/22 22:12 Ethyl Alcohol < 10 mg/dL (0-10) 11/06/22 19:35 Discharge Plan Discharge Patient Disposition: Home Clinical Impression: Seizures Condition: Stable Prescriptions: No Action lorazepam 1 mg tablet 1 mg PO DAILY PRN (Reason: anxiety) Qty: 60 3RF Rx Instructions: Take 1 tab at onset of seizure. May repeat in 1 minute if needed. norethindrone acetate 5 mg tablet See Rx Instructions .ROUTE .COMPLEX Qty: 30 3RF Dose Instruction: TAKE ONE TABLET BY MOUTH DAILY Rx Instructions: TAKE ONE TABLET BY MOUTH DAILY Depo-Provera 150 mg/mL Suspension 150 mg IM Q90D albuterol sulfate 90 mcg/actuation Hfa Aerosol Inhaler 2 puff INHALATION Q6H PRN (Reason: Shortness Of Breath) Discharge Orders: Discharge ED (Routine); Ordered 11/06/22 Ordered By: Malachi Jung Referrals: Mirian Wilson DO [Primary Care Provider] - Patient Instructions: Recurrent Seizures in Adults (ED) Activity Restrictions/Additional Instructions: Return for worsening mental status, continued seizures despite treatment, speech problems, vision problems, weakness, other concerning symptoms. Fill your prescription and take as directed. Coding Level of Care Code ED Mailmaster for Shonda Robertson
[2022-11-06 19:46] LABS: Basophils % 0.3 %; Eosinophils # 0.1 10^3/uL (0.0-0.8); Eosinophils % 0.6 %; Hematocrit 41.5 % (36-47); Lymphocytes # 2.9 10^3/uL (0.8-4.8); Mean Corpuscular Hemoglobin 29.8 pg (27-33); Mean Platelet Volume 9.3 fL (7.4-10.4); Monocytes # 0.5 10^3/uL (0.2-0.9); Monocytes % 4.7 %; Neutrophils # 7.92 10^3/uL (1.8-7.7); Neutrophils % 69.2 %; Nucleated Red Blood Cells % 0 %; Platelet Count 318 10^3/cmm (157-399); Red Blood Count 4.46 10^6/uL (3.85-5.65); Red Cell Distribution Width 12.8 % (12.1-15.1); White Blood Count 11.45 10^3/uL (3.29-11.43)
[2022-11-06] MEDS: valproic acid inj 500 MG in sodium chloride 0.9% 50 ML 55 MG IV (20:00)
[2022-11-06 20:05] LABS: HCG, Serum Qual Negative (Negative)
[2022-11-06] MEDS: haloperidol inj 5 mg/mL INJ 1 mL 3 MG IM (20:19)
[2022-11-06 20:23] LABS: Alanine Aminotransferase 18 U/L (0-33); Alcohol Level < 10 mg/dL (0-10); Alkaline Phosphatase 82 U/L (35-105); Anion Gap 13.8 (5-19); Aspartate Amino Transferase 18 U/L (0-32); Blood Urea Nitrogen 10 mg/dL (6-20); Calcium 8.9 mg/dL (8.5-10.5); Carbon Dioxide 24 mmol/L (22-29); Chloride 105 mmol/L (98-107); Creatine Phosphokinase 63 U/L (26-192); Globulin 3.4 g/dL (1.3-4.6); Glomerular Filtration Rate 73.5 mL/min (90-130); Glucose 96 mg/dL (65-115); Osmolality Calculated 287 mOsm/kg (285-295); Phosphorus 2.1 mg/dL (2.5-4.5); Potassium 3.8 mmol/L (3.5-5.1); Sodium 139 mmol/L (136-145); Total Bilirubin 0.2 mg/dL (0.15-1.2); Total Protein 7.4 g/dL (6.6-8.7)
[2022-11-06 22:39] LABS: Amphetamines Screen Urine Negative (Negative); Barbiturates Screen Urine Negative (Negative); Benzodiazepines Screen Urine Positive (Negative); Cocaine Screen Urine Negative (Negative); Opiate Screen Urine Negative (Negative); PCP Screen Urine Negative (Negative); THC Screen Urine Negative (Negative)
[2022-11-06 23:21] LABS: Add Urine Microscopic? YES; Bacteria Urine TRACE /hpf; Bilirubin Urine Neg (Negative); Blood Urine Neg (Negative); Glucose Urine UA Norm (Normal); Ketones Urine 1+ (Negative); Leukocyte Esterase Urine 2+ (Negative); Mucus Urine 2+ /hpf; Nitrate Urine Negative (Negative); Protein Urine Neg (Negative); RBC Urine 0-4 /hpf (0-2); Specific Gravity, Urine 1.015 (1.005-1.030); Urine Appearance Hazy (CLEAR); Urine Color Yellow (Yellow); Urobilinogen Urine 1 mg/dL (Negative); WBC Urine 25-40 /hpf (0-5); pH Urine 7 (5-7)
[2022-11-06 23:22] LABS: Add Urine Culture? No
[2022-11-07 00:30] VITALS: BP 130/89; PULSE 110; RESP 16; O2SAT 100
== END 2022-11-06 23:08 | disposition home or self-care (01) ==
PROVIDERS: Emergency Provider Emergency Medicine; PCP Family Medicine
DX: G40.909 Epilepsy, unspecified, not intractable, without status epilepticus (principal)
CPT/HCPCS: 70450; 71045; 80053; 80306; 80307; 81001; 82550; 83735; 84100; 84703; 85025; 96374; 96375; 99285; J1630; J2060; J3490

== ENCOUNTER 2023-06-06 19:45 | Emergency (ER) | payer MEDICAID, SELFPAY ==
[2023-06-06] VITALS (7 sets, daily range): BP systolic 102–187; BP diastolic 61–112; PULSE 117–127; RESP 18; TEMP 36.9; O2SAT 95–99; BMI 41.3
[2023-06-06 20:21] LABS: Basophils # 0.1 10^3/uL (0.0-0.1); Basophils % 0.5 %; Eosinophils # 0.1 10^3/uL (0.0-0.8); Eosinophils % 0.8 %; Lymphocytes # 3.3 10^3/uL (0.8-4.8); Lymphocytes % 29.4 %; Mean Corpuscular HGB Conc 32.3 g/dL (30-55); Mean Corpuscular Hemoglobin 29.9 pg (27-33); Mean Corpuscular Volume 92.7 fl (85-98); Monocytes # 0.5 10^3/uL (0.2-0.9); Monocytes % 4.5 %; Neutrophils # 7.22 10^3/uL (1.8-7.7); Neutrophils % 64.6 %; Nucleated Red Blood Cells % 0 %; Platelet Count 383 10^3/cmm (157-399); Red Blood Count 5.18 10^6/uL (3.85-5.65); Red Cell Distribution Width 12.8 % (12.1-15.1); White Blood Count 11.18 10^3/uL (3.29-11.43)
[2023-06-06 20:42] LABS: Alanine Aminotransferase 22 U/L (0-33); Albumin Level 4.5 g/dL (3.5-5.2); Alkaline Phosphatase 105 U/L (35-105); Anion Gap 17.8 (5-19); Aspartate Amino Transferase 21 U/L (0-32); Blood Urea Nitrogen 9 mg/dL (6-20); Calcium 9.5 mg/dL (8.5-10.5); Carbon Dioxide 22 mmol/L (22-29); Chloride 102 mmol/L (98-107); Creatinine Clr Calc Pharmacy 145.6059; Globulin 4.5 g/dL (1.3-4.6); Glomerular Filtration Rate 83.7 mL/min (90-130); Glucose 92 mg/dL (65-115); Osmolality Calculated 284 mOsm/kg (285-295); Potassium 3.8 mmol/L (3.5-5.1); Sodium 138 mmol/L (136-145); Total Bilirubin 0.2 mg/dL (0.15-1.2)
[2023-06-06 20:44] LABS: Lactic Sepsis W/Reflex 1.4 mmol/L (0.5-2.2)
[2023-06-06 20:49] LABS: Procalcitonin 0.03 ng/mL (0-0.5)
[2023-06-06 20:53] LABS: Glucose Point of Care 102 mg/dL (70-110)
[2023-06-06 21:51] LABS: HCG Qualitative Urine. Negative (Negative)
[2023-06-06 21:58] LABS: Amphetamines Screen Urine Negative (Negative); Barbiturates Screen Urine Negative (Negative); Benzodiazepines Screen Urine Positive (Negative); Cocaine Screen Urine Negative (Negative); Opiate Screen Urine Negative (Negative); PCP Screen Urine Negative (Negative); THC Screen Urine Negative (Negative)
[2023-06-06 22:10] LABS: Add Urine Microscopic? YES; Bilirubin Urine Neg (Negative); Blood Urine Neg (Negative); Glucose Urine UA Norm (Normal); Ketones Urine Negative (Negative); Leukocyte Esterase Urine 2+ (Negative); Nitrate Urine Negative (Negative); Protein Urine Neg (Negative); RBC Urine 0-4 /hpf (0-2); Urine Appearance Hazy (CLEAR); Urine Color Yellow (Yellow); Urobilinogen Urine Neg (Negative); pH Urine 5 (5-7)
[2023-06-06 22:11] LABS: Add Urine Culture? No; Bacteria Urine TRACE /hpf; Mucus Urine 2+ /hpf; Squamous Epithelial Cell Urine 15-25 /hpf (0-5)
--- NOTE | 2023-06-06 22:16 | ED_ITS ---
HPI - Seizure 2 General: Chief Complaint: Seizure Stated Complaint: seizures Time Seen by Provider: 06/06/23 19:57 History of Present Illness: HPI Narrative: 33-year-old female presents to the emerg ency department via EMS personnel. EMS personnel state that she had reported seizure-like activity at her home. EMS personnel state that she did have 2 episodes of upper arm and shoulder shaking that they state the patient was able to talk to them during the time that she was shaking her upper extremities. She does not appear to be postictal, as the patient was able to scoot from the EMS cot to the ER bed. She is keeping her eyes closed EMS reports that they attempted to raise her hand above her head and the patient maintained her muscle control. When asking EMS personnel if the patient takes any antiseizure medications the patient with her eyes closed verbally stated no. Patient is able to follow commands appropriately. Although she appears awake and moves all extremities she is keeping her eyes closed. Seizure History: Yes Review of Systems 2 General: Reports: 10 or more systems reviewed and unremarkable except in HPI and below Neuro: Reports: seizure-like activity [facility] ED 2 PFSH: Medical History Abnormal uterine bleeding (AUB) Asthma Depression No pertinent past medical history neghx: htn,dm,thyroid,dtv/pe PCP: [facility] in [facility] Surgical History No pertinent past surgical history Family History Father Hypertension Stroke Denies family history of Colon cancer Ovarian cancer Diabetes Heart disease Hyperlipidemia Breast cancer Family history of thyroid problem Uterine cancer Physical Exam 2 Narrative: EXAM NARRATIVE: Constitutional: the patient appears well nourished and with normal development. Vital signs reviewed as documented. She is in no acute distress. The patient does intermittently move her extremities as requested by the nursing staff. She has intermittently open her eyes and looks around the room and then closed them very quickly when she saw both myself and the nursing staff standing in the room. HENMT: Normocephalic, atraumatic. External ears normal appearance without drainage. Nose without drainage, normal appearance. Mucus membranes moist. Neck is supple, No jugular venous distension, trachea is midline, no appreciable carotid bruits. No lymphadenopathy. No meningeal signs. Flexion, extension and lateral rotation is without pain. Eyes: Pupils are equal, round, reactive to light and accommodation. No scleral icterus. Extra-ocular movement are intact. No nystagmus Thorax is symmetrical and with equal rise and fall with respirations. Resp: Lungs are clear to auscultation. No wheezes, rales, crackles or ronchi at present. Cardio: Regular rate and rhythm. Positive S1, S2. No appreciable murmurs, rubs or gallops. GI: Abdominal exam reveals normal bowel sounds to all quadrants. No organomegaly. No obvious palpable masses noted. No hepatomegally appreciated. Soft, non-tender to palpation. Extremity: Extremities are non-edematous and both femoral and pedal pulses are 2+ and equal bilaterally. Moves all extremities well, sensation in all extremities. Neuro: Alert and oriented x4, person, place, time and situation. Cranial nerves II through XII are grossly intact, there is no focal neurological deficits that I can appreciate at present. Sensation intact to all extremities. 2-point discrimination intact. Light touch intact to all extremities. Motor strength in the upper and lower extremities are equal and bilateral 5/5. Psych: Cooperative, calm. Skin: No lesions, rashes. No gross abnormalities noted. Back: Symmetrical, no obvious deformity, No CVA tenderness Course 2 Vital Signs: Vital signs: Vital Signs Temperature 98.5 F 06/06/23 19:46 Pulse Rate 119 H 06/06/23 22:46 Respiratory Rate 18 06/06/23 19:46 Blood Pressure 127/94 06/06/23 22:46 Pulse Oximetry 96 06/06/23 22:46 Oxygen Delivery Me thod Room Air 06/06/23 22:30 MDM - Seizure MDM Narrative Medical decision making narrative: Physical exam was completed and documented. CBC was obtained and was essentially normal, the CMP was essentially normal as well. Patient's urine drug screen was positive for benzodiazepines as her mother who is accompanying her now states that she does take Ativan at home when she needs to to prevent her seizures. The mother also states that she is takes Topamax for her chronic headaches. The patient states that she has been evaluated by multiple neurologist and is currently not taking any antiepileptics. The patient states she has been seen by a neurologist in [facility] that is a specialist in epilepsy and that she has had an EEG and a polysomy study with EEG and videography. The patient did request that I look at her [facility]on and provided that information to me on her phone. I did look through the patient's neurologist prescriptions for chest pain several times the patient did not have epilepsy or seizures. The patient's mother states that she does not understand why her daughter is having these episodes where she shakes her arms and is still able to talk. I did advise the patient that she should ultimately follow-up with neurology and that it may warrant additional evaluation given her concerns for continued muscle shaking and concerns for seizure-like activity. I did advise her that there were 2 available neurologist here at [facility] Dr. Ramirez and Dr. Myrick. Lab Data 06/06/23 20:16 06/06/23 20:16 Labs: Laboratory Results WBC 11.18 10^3/uL (3.29-11.43) 06/06/23 20:16 RBC 5.18 10^6/uL (3.85-5.65) 06/06/23 20:16 Hgb 15.50 g/dL (11.27-16.99) 06/06/23 20:16 Hct 48.0 % (36-47) H 06/06/23 20:16 MCV 92.7 fl (85-98) 06/06/23 20:16 MCH 29.9 pg (27-33) 06/06/23 20:16 MCHC 32.3 g/dL (30-55) 06/06/23 20:16 RDW 12.8 % (12.1-15.1) 06/06/23 20:16 Plt Count 383 10^3/cmm (157-399) 06/06/23 20:16 MPV 9.0 fL (7.4-10.4) 06/06/23 20:16 Neut % (Auto) 64.6 % 06/06/23 20:16 Lymph % (Auto) 29.4 % 06/06/23 20:16 [place] % (Auto) 4.5 % 06/06/23 20:16 Eos % (Auto) 0.8 % 06/06/23 20:16 Baso % (Auto) 0.5 % 06/06/23 20:16 Neut # (Auto) 7.22 10^3/uL (1.8-7.7) 06/06/23 20:16 Lymph # (Auto) 3.3 10^3/uL (0.8-4.8) 06/06/23 20:16 [place] # (Auto) 0.5 10^3/uL (0.2-0.9) 06/06/23 20:16 Eos # (Auto) 0.1 10^3/uL (0.0-0.8) 06/06/23 20:16 Baso # (Auto) 0.1 10^3/uL (0.0-0.1) 06/06/23 20:16 Nucleated RBC % (auto) 0 % 06/06/23 20:16 Nucleated RBCs # 0.0 /100WBC 06/06/23 20:16 Sodium 138 mmol/L (136-145) 06/06/23 20:16 Potassium 3.8 mmol/L (3.5-5.1) 06/06/23 20:16 Chloride 102 mmol/L (98-107) 06/06/23 20:16 Carbon Dioxide 22 mmol/L (22-29) 06/06/23 20:16 Anion Gap 17.8 (5-19) 06/06/23 20:16 BUN 9 mg/dL (6-20) 06/06/23 20:16 Creatinine 0.8 mg/dL (0.5-0.9) 06/06/23 20:16 GFR Calculation 83.7 mL/min (90-130) L 06/06/23 20:16 Glucose 92 mg/dL (65-115) 06/06/23 20:16 POC Glucose 102 mg/dL (70-110) 06/06/23 20:50 Calculated Osmolality 284 mOsm/kg (285-295) L 06/06/23 20:16 Lactic Acid 1.4 mmol/L (0.5-2.2) 06/06/23 20:16 Calcium 9.5 mg/dL (8.5-10.5) 06/06/23 20:16 Total Bilirubin 0.2 mg/dL (0.15-1.2) 06/06/23 20:16 AST 21 U/L (0-32) 03/25/24 20:16 ALT 22 U/L (0-33) 06/06/23 20:16 Alkaline Phosphatase 105 U/L (35-105) 06/06/23 20:16 Total Protein 9.0 g/dL (6.6-8.7) H 06/06/23 20:16 Albumin 4.5 g/dL (3.5-5.2) 06/06/23 20:16 Globulin 4.5 g/dL (1.3-4.6) 06/06/23 20:16 Procalcitonin 0.03 ng/mL (0-0.5) 06/06/23 20:16 Prolactin 56.41 ng/mL (4.8-23.3) H 06/06/23 20:16 HCG, Qual Negative (Negative) 06/06/23 21:39 Urine Color Yellow (Yellow) 06/06/23 21:39 Urine Appearance Hazy (CLEAR) A 06/06/23 21:39 Urine pH 5 (5-7) 06/06/23 21:39 Ur Specific [place] 1.030 (1.005-1.030) 06/06/23 21:39 Urine Protein Neg (Negative) 06/06/23 21:39 Urine Glucose (UA) Norm (Normal) 06/06/23 21:39 Urine Ketones Negative (Negative) 06/06/23 21:39 Urine Blood Neg (Negative) 06/06/23 21:39 Urine Nitrate Negative (Negative) 06/06/23 21:39 Urine Bilirubin Neg (Negative) 06/06/23 21:39 Urine Urobilinogen Neg mg/dL (Negative) 06/06/23 21:39 Ur Leukocyte Esterase 2+ (Negative) H 06/06/23 21:39 Urine RBC 0-4 /hpf (0-2) H 06/06/23 21:39 Urine WBC 10-15 /hpf (0-5) H 06/06/23 21:39 Ur Squamous Epith Cells 15-25 /hpf (0-5) H 06/06/23 21:39 Amorphous Sediment Not Reportable 06/06/23 21:39 Urine Bacteria Trace /hpf (NONE) 06/06/23 21:39 Urine Mucus 2+ /hpf 06/06/23 21:39 Urine Opiates Screen Negative ng/mL (Negative) 06/06/23 21:39 Ur Barbiturates Screen Negative ng/mL (Negative) 06/06/23 21:39 Ur Phencyclidine Scrn Negative ng/mL (Negative) 06/06/23 21:39 Ur Amphetamines Screen Negative ng/mL (Negative) 06/06/23 21:39 U Benzodiazepines Scrn Positive ng/mL (Negative) H 06/06/23 21:39 Urine Cocaine Screen Negative ng/mL (Negative) 06/06/23 21:39 U Marijuana (THC) Screen Negative ng/mL (Negative) 06/06/23 21:39 No radiology studies performed this visit Discharge Plan Discharge Patient Disposition: Home Clinical Impression: Functional neurological symptom disorder with attacks or seizures, UTI (urinary tract infection) Condition: Stable Prescriptions: No Action lorazepam 1 mg tablet 1 mg PO DAILY PRN (Reason: anxiety) Qty: 60 3RF Rx Instructions: Take 1 tab at onset of seizure. May repeat in 1 minute if needed. norethindrone acetate 5 mg tablet See Rx Instructions .ROUTE .COMPLEX Qty: 30 3RF Dose Instruction: TAKE ONE TABLET BY MOUTH DAILY Rx Instructions: TAKE ONE TABLET BY MOUTH DAILY Depo-Provera 150 mg/mL Suspension 150 mg IM Q90D albuterol sulfate 90 mcg/actuation Hfa Aerosol Inhaler 2 puff INHALATION Q6H PRN (Reason: Shortness Of Breath) Discharge Orders: Discharge ED (Routine); Ordered 06/06/23 Ordered By: Kobe Fontenot Referrals: Mirian Wilson DO [Primary Care Provider] - Discharge Diet: Usual diet Discharge Activity: Resume usual activity Patient Instructions: Opioid Safety, Pain Management Coding Level of Care Code ED Lead Sewage Plant Operator for Shonda Robertson
[2023-06-06 23:48] LABS: Prolactin 56.41 ng/mL (4.8-23.3)
== END 2023-06-06 22:46 | disposition home or self-care (01) ==
PROVIDERS: Emergency Provider Internal Medicine; PCP Family Medicine
DX: F44.5 Conversion disorder with seizures or convulsions (principal); N39.0 Urinary tract infection, site not specified
CPT/HCPCS: 36416; 80053; 80306; 81001; 81025; 82962; 83605; 84145; 84146; 85025; 99283

== ENCOUNTER 2024-04-17 15:13 | Emergency (ER) | payer SELFPAY ==
[2024-04-17] VITALS (7 sets, daily range): BP systolic 109–128; BP diastolic 62–92; PULSE 93–117; RESP 20–26; TEMP 36.6; O2SAT 94–99; BMI 39.9
--- NOTE | 2024-04-17 15:25 | ECG_ITS ---
[facility]: 2024-04[facility]17 Pat Name: Mery Grant Department: Room: Gender: Female Senior Software Systems Engineer: : 1990 Requested By: Jackson Daniel Order Number: [id number] Payal MD: Kyle Keen M.D. Measurements Intervals [place] Rate: 87 P: 63 NV: 144 QRS: 33 QRSD: 76 T: 28 QT: 282 QTc: 341 Interpretive Statements SINUS RHYTHM NONSPECIFIC T-WAVE ABNORMALITY Compared to ECG 09/10/2021 18:11:08 T-wave abnormality now present Electronically Signed On 04-19-2024 22:02:34 DIRECTOR OF ENVIRONMENTAL SERVICES by Kyle Keen M.D. [email or web address]
--- NOTE | 2024-04-17 15:25 | XRR_ITS ---
PROCEDURE INFORMATION: Exam: XR Chest Exam date and time: 04/17/2024 3:31 PM Age: 34 years old Clinical indication: Pain; Angina pectoris; Additional info: Cp TECHNIQUE: Imaging protocol: Radiologic exam of the chest. Views: 1 view. COMPARISON: CR (CHEST, ) 11/06/2022 7:31 PM FINDINGS: Tubes, catheters and devices: None. Lungs: Lung volumes are decreased. The lungs appear otherwise clear. Improvement of bilateral lung opacities is demonstrated. Pleural spaces: No pleural effusion. No pneumothorax. Heart/Mediastinum: Mediastinum and zoe appear unremarkable. Bones/joints: No acute bony abnormality identified. Soft tissues: This study is limited by patient's body habitus. XR/XR chest 1V portable [id number] IMPRESSION: No evidence for acute abnormality identified in the chest.
[2024-04-17 16:27] LABS: Basophils % 0.4 %; Eosinophils # 0.1 10^3/uL (0.0-0.8); Eosinophils % 1.2 %; Hematocrit 44.9 % (36-47); Lymphocytes # 2.7 10^3/uL (0.8-4.8); Lymphocytes % 35.4 %; Mean Corpuscular HGB Conc 32.5 g/dL (30-55); Mean Corpuscular Hemoglobin 29.8 pg (27-33); Mean Corpuscular Volume 91.6 fl (85-98); Mean Platelet Volume 9.4 fL (7.4-10.4); Monocytes # 0.4 10^3/uL (0.2-0.9); Monocytes % 5.4 %; Neutrophils # 4.35 10^3/uL (1.8-7.7); Neutrophils % 57.3 %; Nucleated Red Blood Cells % 0 %; Platelet Count 369 10^3/cmm (157-399); Red Cell Distribution Width 12.5 % (12.1-15.1); White Blood Count 7.58 10^3/uL (3.29-11.43)
--- NOTE | 2024-04-17 16:33 | W.ED.ARRPALP ---
HPI - Arrhythmia/Palpitations General: Chief Complaint: Arrhythmia/Palpitations Stated Complaint: chest pressure Time Seen by Provider: 04/17/24 15:53 Source: patient Mode of arrival: ambulatory Limitations: no limitations History of Present Illness: 34-year-old female states that she had been having some palpitations throughout the day today. She states that her's morning she fell like her heart was racing and passed out she been having some chest pain since then states been a sharp pain in her chest she denies any headache denies any vomiting diarrhea denies any shortness of breath. Associated symptoms: Deny nausea or vomiting Related Data Home Medications ?Medication ?Instructions ?Recorded ?Confirmed epinephrine 0.3 mg/0.3 mL 0.3 ml IM PRN PRN Allergic Reaction 04/17/24 04/17/24 injection, auto-injector hydroxyzine HCl 25 mg tablet 25 mg PO TID PRN Itching 04/17/24 04/17/24 norethindrone acetate 5 mg tablet 5 mg PO DAILY 04/17/24 04/17/24 topiramate 25 mg tablet 25 mg PO BID 04/17/24 04/17/24 venlafaxine 37.5 mg tablet 37.5 mg PO BID 04/17/24 04/17/24 Allergies Allergy/AdvReac Type Severity Reaction Status Date / Time Alpha-Gal Allergy ADR-Gastrointestinal Verified 04/17/24 15:27 ([id number],[id number] Upset ketorolac (From Toradol) Allergy Unknown Verified 04/17/24 15:26 prochlorperazine (From Allergy Unknown Verified 04/17/24 15:26 Compazine) Review of Systems Const: Denies: fever(s), chills, body aches or change in appetite ENMT: Denies: throat pain or dental pain Card: Reports: chest pain and palpitations Resp: Denies: dyspnea GI: Denies: abdominal pain, nausea, vomiting or diarrhea Musc: Denies: neck pain or back pain Skin/Breast: Denies: rash Neuro: Denies: headache(s) PFS ED PFSH: Medical History No pertinent past medical history neghx: htn,dm,thyroid,dtv/pe PCP: [facility] in [place] - Steve Depression Asthma Abnormal uterine bleeding (AUB) Surgical History No pertinent past surgical history Family History Father Hypertension Stroke Denies family history of Colon cancer Ovarian cancer Diabetes Heart disease Hyperlipidemia Breast cancer Family history of thyroid problem Uterine cancer Physical Exam Const: COMMON NORMALS: no acute distress, patient oriented x3 and healthy appearing HENMT: COMMON NORMALS: normocephalic and atraumatic HEAD & SCALP: normocephalic and atraumatic Eye: COMMON NORMALS: conjunctivae normal CONJUNCTIVA: Yes conjunctivae normal Neck/C-Spine: COMMON NORMALS: full ROM and supple Chest: COMMONS NORMALS: normal inspection of the chest and normal palpation of entire chest wall Resp: COMMON NORMALS: normal respiratory effort, No retractions, No use of accessory muscles and clear to auscultation bilaterally AUSCULTATION: clear to auscultation bilaterally Cardio: COMMON NORMALS: regular rate, regular rhythm and No murmurs present (Cardio) RATE: regular rate RHYTHM: regular rhythm GI: COMMON NORMALS: Normal to inspection, nondistended, normoactive bowel sounds present, Soft to palpation, non-tender and no masses PALPATION: Yes Soft to palpation Extremity: COMMON NORMALS: normal to inspection and full ROM Neuro: COMMON NORMALS: patient oriented x3, moves all extremities and no focal motor deficits Psych: COMMON NORMALS: mental status grossly normal, Normal thought process present and cooperative THOUGHT PROCESS: Normal thought process present Skin: COMMON NORMALS: no rashes or lesions noted and no wounds GENERAL SKIN EXAM: no rashes or lesions noted Course Vital Signs: Vital signs: Vital Signs Temperature 97.9 F 04/17/24 15:15 Pulse Rate 97 04/17/24 15:15 Blood Pressure 128/92 04/17/24 15:15 Pulse Oximetry 99 04/17/24 15:15 Oxygen Delivery Me thod Room Air 04/17/24 15:15 MDM - Arrhythmia/Palpitations Medical Decision Making Patient presents here with chest pain and palpitations patient's blood work including cardiac enzyme here is normal no signs of ACS no signs of pulm embolism or dissection patient stable for discharge follow-up PCP return if worsening. Medical Records I reviewed the patient's medical records. Lab Data I reviewed the patient's lab results. 04/17/24 16:16 04/17/24 16:16 Radiology Impressions Chest X-Ray 04/17/24 15:25 IMPRESSION: No evidence for acute abnormality identified in the chest. Laboratory Results WBC 7.58 10^3/uL (3.29-11.43) 04/17/24 16:16 RBC 4.90 10^6/uL (3.85-5.65) 04/17/24 16:16 Hgb 14.60 g/dL (11.27-16.99) 04/17/24 16:16 Hct 44.9 % (36-47) 04/17/24 16:16 MCV 91.6 fl (85-98) 04/17/24 16:16 MCH 29.8 pg (27-33) 04/17/24 16:16 MCHC 32.5 g/dL (30-55) 04/17/24 16:16 RDW 12.5 % (12.1-15.1) 04/17/24 16:16 Plt Count 369 10^3/cmm (157-399) 04/17/24 16:16 MPV 9.4 fL (7.4-10.4) 04/17/24 16:16 Neut % (Auto) 57.3 % 04/17/24 16:16 Lymph % (Auto) 35.4 % 04/17/24 16:16 [place] % (Auto) 5.4 % 04/17/24 16:16 Eos % (Auto) 1.2 % 04/17/24 16:16 Baso % (Auto) 0.4 % 04/17/24 16:16 Neut # (Auto) 4.35 10^3/uL (1.8-7.7) 04/17/24 16:16 Lymph # (Auto) 2.7 10^3/uL (0.8-4.8) 04/17/24 16:16 [place] # (Auto) 0.4 10^3/uL (0.2-0.9) 04/17/24 16:16 Eos # (Auto) 0.1 10^3/uL (0.0-0.8) 04/17/24 16:16 Baso # (Auto) 0.0 10^3/uL (0.0-0.1) 04/17/24 16:16 Nucleated RBC % (auto) 0 % 04/17/24 16:16 Nucleated RBCs # 0.0 /100WBC 04/17/24 16:16 PT 12.70 SECONDS (12.1-14.9) 04/17/24 16:16 INR 0.89 (0.8-1.2) 04/17/24 16:16 Sodium 140 mmol/L (136-145) 04/17/24 16:16 Potassium 3.8 mmol/L (3.5-5.1) 04/17/24 16:16 Chloride 105 mmol/L (98-107) 04/17/24 16:16 Carbon Dioxide 23 mmol/L (22-29) 04/17/24 16:16 Anion Gap 15.8 (5-19) 04/17/24 16:16 BUN 10 mg/dL (6-20) 04/17/24 16:16 Creatinine 0.7 mg/dL (0.5-0.9) 04/17/24 16:16 GFR Calculation 97.0 mL/min (90-130) 04/17/24 16:16 Glucose 104 mg/dL (65-115) 04/17/24 16:16 Calculated Osmolality 289 mOsm/kg (285-295) 04/17/24 16:16 Calcium 9.8 mg/dL (8.5-10.5) 04/17/24 16:16 Total Bilirubin 0.2 mg/dL (0.15-1.2) 04/17/24 16:16 AST 27 U/L (0-32) 04/17/24 16:16 ALT 38 U/L (0-33) H 04/17/24 16:16 Alkaline Phosphatase 95 U/L (35-105) 04/17/24 16:16 Troponin T Baseline < 6 ng/L (0-10) 04/17/24 16:16 Total Protein 7.4 g/dL (6.6-8.7) 04/17/24 16:16 Albumin 4.3 g/dL (3.5-5.2) 04/17/24 16:16 Globulin 3.1 g/dL (1.3-4.6) 04/17/24 16:16 Lipase 26 U/L (13-60) 04/17/24 16:16 All radiology interpretation(s) finalized by discharge Discharge Plan Discharge Patient Disposition: Home Clinical Impression: Palpitations, Chest pain Condition: Stable Prescriptions: No Action topiramate 25 mg tablet 25 mg PO BID venlafaxine 37.5 mg tablet 37.5 mg PO BID hydroxyzine HCl 25 mg tablet 25 mg PO TID PRN (Reason: Itching) norethindrone acetate 5 mg tablet 5 mg PO DAILY epinephrine 0.3 mg/0.3 mL auto-injector 0.3 ml IM PRN PRN (Reason: Allergic Reaction) Discharge Orders: Discharge ED (Routine); Ordered 04/17/24 Ordered By: Jackson Daniel Referrals: Mirian Wilson, [Primary Care Provider] - Discharge Diet: Advance as tolerated Discharge Activity: Resume usual activity Patient Instructions: Chest Pain (ED) Print Language: Belarusian Coding Level of Care Code ED Table Machine Operator for Shonda Robertson
[2024-04-17 16:44] LABS: INR 0.89 (0.8-1.2)
[2024-04-17 16:45] LABS: Troponin(5th) Baseline < 6 ng/L (0-10)
[2024-04-17 16:54] LABS: Alanine Aminotransferase 38 U/L (0-33); Albumin Level 4.3 g/dL (3.5-5.2); Alkaline Phosphatase 95 U/L (35-105); Anion Gap 15.8 (5-19); Aspartate Amino Transferase 27 U/L (0-32); Blood Urea Nitrogen 10 mg/dL (6-20); Calcium 9.8 mg/dL (8.5-10.5); Carbon Dioxide 23 mmol/L (22-29); Chloride 105 mmol/L (98-107); Creatinine Clr Calc Pharmacy 161.5753; Globulin 3.1 g/dL (1.3-4.6); Glucose 104 mg/dL (65-115); Lipase 26 U/L (13-60); Osmolality Calculated 289 mOsm/kg (285-295); Potassium 3.8 mmol/L (3.5-5.1); Sodium 140 mmol/L (136-145); Total Bilirubin 0.2 mg/dL (0.15-1.2); Total Protein 7.4 g/dL (6.6-8.7)
== END 2024-04-17 18:30 | disposition home or self-care (01) ==
PROVIDERS: Emergency Provider Emergency Medicine; PCP Family Medicine
DX: R00.2 Palpitations (principal); R07.9 Chest pain, unspecified
CPT/HCPCS: 36415; 71045; 80053; 83690; 84484; 85025; 85610; 93005; 99285

== ENCOUNTER 2024-06-12 12:06 | Outpatient (CLI) | payer MEDICAID, SELFPAY ==
[2024-06-12 13:13] LABS: Thyroid Stimulating Hormone 1.53 uIU/mL (0.27-4.20)
[2024-06-12 13:33] LABS: Ferritin 61 ng/mL (15-150); Iron 55 ug/dL (37-145); Percent Saturation 15.4 % (20-50); Total Iron Binding Capacity 355 mcg/dl; Unsaturated Iron Binding 300 ug/dL (112-347)
== END 2024-06-12 12:07 | disposition home or self-care (01) ==
PROVIDERS: PCP Family Medicine; Visit Provider Dermatology
DX: L63.8 Other alopecia areata (principal)
CPT/HCPCS: 36415; 82652; 82728; 83540; 83550; 84439; 84443; 84630